=== PATIENT | female | born 1945 | race Caucasian/White ===

== ENCOUNTER → 2017-08-14 14:06 | Outpatient (CLI) | payer MEDICARE, SELFPAY | PROVIDERS: Visit Provider Family Medicine Geriatric Medicine | DX: R19.7 Diarrhea, unspecified (principal) | CPT/HCPCS: 36415; 82274; 83630; 87177; 87209; 87493; 87506 ==

== ENCOUNTER 2017-08-31 11:10 | Emergency (ER) | payer MEDICARE, SELFPAY ==
[2017-08-31 11:10] VITALS: BP 146/94; PULSE 69; RESP 20; TEMP 36.6; O2SAT 96; BMI 37.2
--- NOTE | 2017-08-31 11:36 | RAD_ITS ---
STUDY: X-RAY - LUMBAR SPINE REASON FOR EXAM: Female, 72 years old. Low back pain after falling on ice this morning. TECHNIQUE: 3 view(s) of the lumbar spine were obtained. COMPARISON: CT of the abdomen and pelvis dated August 13, 2017. FINDINGS: There is an exaggerated lumbar lordosis. There is no substantial scoliosis. There is a normal alignment of the vertebrae. There is mild decreased height of L1. This may represent an acute mild compression fracture. Estimated amount compression is approximately 20%. There is also mild decreased height of the L2 vertebral body. This is unchanged since the previous CT. There is multi-level degenerative disc disease with multi-level disc space narrowing. There is mild anterolisthesis at L4-5. There is atherosclerotic calcification of the abdominal aorta without a demonstrated aneurysm. RAD/Lumbar Spine 2 or 3 Views IMPRESSION: 1. Probably acute mild compression fracture of L1. 2. Old compression fracture of L2. 3. Multilevel degenerative disc disease and degenerative arthropathy of the lumbar spine. Electronically Signed: Lilian Mann MD at 13:31 EST , Service support ,
--- NOTE | 2017-08-31 13:49 | ED.VISSUMM ---
- ER Visit Summary Date of Service: 08/31/17 Chief Complaint: Back pain History of Present Illness: The patient is a 72 F who presents after mechanical fall. She slipped on ice and fell into a seated position. She was able to get up on her own and ambulate. She denies any numbness tingling radiation to the legs fevers abdominal pain history of back surgery urinary retention or fecal incontinence. Denies head injury loss of consciousness or injury to extremities. Physical Examination: Afebrile vitals are unremarkable Heart regular rate and rhythm Lungs are clear Abdomen soft Patient has left paraspinal lumbar tenderness she has no midline tenderness Normal strength and sensation of the lower extremities with normal pulses Test Results: Lumbar x-rays show mild acute L1 compression fracture and old L2 compression fracture as well as multilevel degenerative disc disease Emergency Department Course and Treatment: Patient's symptoms are controlled while sitting in bed. We discussed pain control and she does not want to take any medications except extra strength Tylenol. She was instructed on supportive care. She will follow-up with her primary care physician. She was instructed on specific signs and symptoms to monitor for, conditions under which to return to the emergency department. Patient discharged. Treatment Plan: [] Disposition: Discharge Impression: Lumbar compression fracture Lumbosacral strain This note was generated with [employer] dictation software. It may contain incorrect words, spelling, and punctuation that were not noted in review of the chart prior to signing ED Disposition - Plan for ED Patient: Chief Complaint: Back Referrals: Demetri Patterson Chi, MD [Primary Care Provider] -
--- NOTE | 2017-08-31 13:51 | ED.DEP ---
ED Disposition - Plan for ED Patient: Chief Complaint: Back Instructions: ED Fx Comp Vertebral, ED Sprain Strain Lumbar Referrals: Demetri Patterson Chi, MD [Primary Care Provider] -
[2017-08-31 13:58] VITALS: BP 130/72; PULSE 70; RESP 16; O2SAT 100
== END 2017-08-31 13:59 | disposition home or self-care (01) ==
LOC: ED 12:20
PROVIDERS: Emergency Provider Emergency Medicine; Family Provider Family Medicine; PCP Family Medicine Geriatric Medicine
DX: S32.019A Unspecified fracture of first lumbar vertebra, initial encounter for closed fracture (principal); S39.012A Strain of muscle, fascia and tendon of lower back, initial encounter; W00.0XXA Fall on same level due to ice and snow, initial encounter; Y93.9 Activity, unspecified; Y92.9 Unspecified place or not applicable; Y99.9 Unspecified external cause status; M51.36 Other intervertebral disc degeneration, lumbar region; I10 Essential (primary) hypertension; K21.9 Gastro-esophageal reflux disease without esophagitis; Z79.899 Other long term (current) drug therapy; Z90.710 Acquired absence of both cervix and uterus
CPT/HCPCS: 72100; 99282

== ENCOUNTER → 2017-09-11 10:39 | Outpatient (CLI) | payer MEDICARE, SELFPAY | PROVIDERS: Family Provider Family Medicine Geriatric Medicine; PCP Family Medicine Geriatric Medicine; Visit Provider Family Medicine Geriatric Medicine | DX: R69 Illness, unspecified (principal) | CPT/HCPCS: 87633 ==

== ENCOUNTER → 2017-11-12 14:00 | Outpatient (CLI) | payer MEDICARE, SELFPAY ==
[2017-11-12 17:00] LABS: Absolute Lymphocyte Count 1.83 X10^3/ul (0.83-4.51); Absolute Neutrophil Count 4.4 X10^3/uL (2.0-7.7); Basophil# 0.02 X10^3/uL; Basophil% 0.3 % (0-1); Eosinophil# 0.12 X10^3/uL; Eosinophils% 1.8 % (0-5); Hematocrit 41.2 % (37-47); Hemoglobin 13.4 g/dl (12.0-15.0); Lymphocyte # 1.83 X10^3/ul (4.0); Lymphocyte % 26.8 % (19-41); Mean Corp Hgb Conc 32.5 g/gl (32-36); Mean Corpuscular Hgb 29.6 pg (27.0-32.0); Mean Corpuscular Volume 91.2 fL (81-99); Mean Platelet Vol. 9.8 fl (6.2-12.0); Monocyte# 0.47 X10^3/uL; Monocyte% 6.9 % (0-10); Neutrophil # 4.38 X10^3/uL (2.7-7.7); Neutrophil % 63.9 % (47-70); Platelet Count 280 K/mm3 (150-450); RBC Distribution Width CV 14.6 % (11.6-14.6); RBC Distribution Width SD 47.7 fl (35.1-43.9); Red Blood Count 4.52 M/mm3 (4.2-5.4); White Blood Count 6.8 K/mm3 (4.4-11.0)
[2017-11-12 17:02] LABS: POSITIVE COUNT NO; POSITIVE DIFFERENTIAL NO; POSITIVE MORPHOLOGY NO
[2017-11-12 17:10] LABS: Vitamin D,25 Hydroxy 33.4 ng/mL (29.95-100.01)
[2017-11-12 17:21] LABS: ALB/GLOB Ratio 0.8 RATIO (0.9-2.4); AST(SGOT) 16 U/L (15-37); Alanine Aminotransfer ALT/SGPT 24 U/L (13-56); Albumin, Serum 3.4 g/dL (3.2-5.0); Alkaline Phosphatase 89 U/L (45-117); Anion Gap 9 (5-15); BUN 12 mg/dL (7-18); BUN/Creat Ratio 15.5 RATIO (10-20); Calcium,Total 8.8 mg/dL (8.5-10.1); Chloride 105 mmol/L (98-107); Creatinine, Serum 0.78 mg/dL (0.55-1.02); EST Glomerular Filtration Rate 78 mL/min (>60); Est Glom Filt Rate - Afr Amer 94 mL/min (>60); Globulin 4.1 g/dL (2.2-4.2); Glucose 113 mg/dL (74-106); Potassium 3.7 mmol/L (3.5-5.1); Protein, Total 7.5 g/dL (6.4-8.2); Sodium Level 139 mmol/L (136-145); Thyroid Stim Hormone (TSH) 1.06 uIU/mL (0.358-3.74)
== END ==
PROVIDERS: Family Provider Family Medicine Geriatric Medicine; PCP Family Medicine Geriatric Medicine; Visit Provider Family Medicine Geriatric Medicine
DX: R53.83 Other fatigue (principal); E55.9 Vitamin D deficiency, unspecified
CPT/HCPCS: 36415; 80053; 82306; 84443; 85025

== ENCOUNTER → 2018-02-10 14:30 | Outpatient (CLI) | payer MEDICARE, SELFPAY ==
--- NOTE | 2018-02-10 15:35 | RAD_ITS ---
STUDY: X-RAY CHEST REASON FOR EXAM: Female, 72 years old. SOB TECHNIQUE: Frontal and lateral views of the chest. COMPARISON: None. FINDINGS: Chronic interstitial lung changes without superimposed acute alveolar disease. There is no demonstrated pleural abnormality. Normal size heart. Normal mediastinum and isabel. Normal visualized pulmonary arteries. Normal visualized aortic arch and descending thoracic aorta. Thoracolumbar scoliosis. Normal visualized ribs, clavicles, and shoulders. There is no demonstrated abnormality of the visualized soft tissue structures of the upper abdomen. RAD/Chest PA and Lateral IMPRESSION: Chronic interstitial lung changes without superimposed acute alveolar disease. Electronically Signed: eMng Richardson MD at 2:49 EDT Tel , Service support ,
[2018-02-10 17:22] LABS: D-Dimer Quantitative (DVT/PE) 0.34 FEU/ug/m (0.27-0.49)
[2018-02-10 17:23] LABS: Absolute Neutrophil Count 4.9 X10^3/uL (2.0-7.7); Basophil# 0.02 X10^3/uL; Basophil% 0.3 % (0-1); Eosinophil# 0.08 X10^3/uL; Hematocrit 41.3 % (37-47); Hemoglobin 13.1 g/dl (12.0-15.0); Lymphocyte % 29.6 % (19-41); Mean Corp Hgb Conc 31.7 g/gl (32-36); Mean Corpuscular Hgb 29.4 pg (27.0-32.0); Mean Corpuscular Volume 92.8 fL (81-99); Mean Platelet Vol. 9.5 fl (6.2-12.0); Monocyte# 0.45 X10^3/uL; Monocyte% 5.8 % (0-10); Platelet Count 289 K/mm3 (150-450); RBC Distribution Width CV 13.4 % (11.6-14.6); RBC Distribution Width SD 45.6 fl (35.1-43.9); Red Blood Count 4.45 M/mm3 (4.2-5.4); White Blood Count 7.8 K/mm3 (4.4-11.0)
[2018-02-10 17:24] LABS: POSITIVE COUNT NO; POSITIVE DIFFERENTIAL NO; POSITIVE MORPHOLOGY NO
[2018-02-10 17:47] LABS: BNP,B-Type NATRIURETIC PEPTIDE 37.7 pg/mL (0-100)
[2018-02-10 17:48] LABS: ALB/GLOB Ratio 0.8 RATIO (0.9-2.4); AST(SGOT) 13 U/L (15-37); Alanine Aminotransfer ALT/SGPT 22 U/L (13-56); Albumin, Serum 3.4 g/dL (3.2-5.0); Alkaline Phosphatase 84 U/L (45-117); Anion Gap 10 (5-15); BUN 15 mg/dL (7-18); BUN/Creat Ratio 15.6 RATIO (10-20); Chloride 105 mmol/L (98-107); Creatinine, Serum 0.96 mg/dL (0.55-1.02); EST Glomerular Filtration Rate 61 mL/min (>60); Est Glom Filt Rate - Afr Amer 74 mL/min (>60); Globulin 4.2 g/dL (2.2-4.2); Glucose 147 mg/dL (74-106); Potassium 3.5 mmol/L (3.5-5.1); Protein, Total 7.6 g/dL (6.4-8.2); Sodium Level 139 mmol/L (136-145); Thyroid Stim Hormone (TSH) 0.75 uIU/mL (0.358-3.74)
[2018-02-11 08:31] LABS: Vitamin D,25 Hydroxy 26.1 ng/mL (29.95-100.01)
== END ==
PROVIDERS: Family Provider Family Medicine Geriatric Medicine; PCP Family Medicine Geriatric Medicine; Visit Provider Family Medicine Geriatric Medicine
DX: I10 Essential (primary) hypertension (principal); E55.9 Vitamin D deficiency, unspecified; R06.02 Shortness of breath
CPT/HCPCS: 36415; 71046; 80053; 82306; 83880; 84443; 85025; 85379

== ENCOUNTER → 2018-05-13 14:55 | Outpatient (CLI) | payer MEDICARE, SELFPAY ==
[2018-05-13 16:00] LABS: Hematocrit 39.4 % (37-47); Hemoglobin 12.6 g/dl (12.0-15.0); Mean Corpuscular Hgb 30.1 pg (27.0-32.0); Mean Platelet Vol. 9.7 fl (6.2-12.0); Platelet Count 261 K/mm3 (150-450); RBC Distribution Width CV 13.7 % (11.6-14.6); RBC Distribution Width SD 44.8 fl (35.1-43.9); Red Blood Count 4.19 M/mm3 (4.2-5.4); White Blood Count 9.1 K/mm3 (4.4-11.0)
[2018-05-13 16:03] LABS: Scan Indicated on CBC? Y/N NO
== END ==
PROVIDERS: Family Provider Family Medicine Geriatric Medicine; PCP Family Medicine Geriatric Medicine; Referring Provider Internal Medicine Pulmonary Disease; Visit Provider Internal Medicine Pulmonary Disease
DX: I10 Essential (primary) hypertension (principal); J45.909 Unspecified asthma, uncomplicated; Z86.2 Personal history of diseases of the blood and blood-forming organs and certain disorders involving the immune mechanism
CPT/HCPCS: 36415; 85027

== ENCOUNTER → 2018-08-17 14:33 | Outpatient (CLI) | payer MEDICARE, SELFPAY ==
[2018-01-12 17:19] VITALS: BMI 42.0
[2018-08-17 16:39] LABS: Absolute Lymphocyte Count 2.46 X10^3/ul (0.83-4.51); Absolute Neutrophil Count 5.1 X10^3/uL (2.0-7.7); Basophil# 0.03 X10^3/uL; Basophil% 0.4 % (0-1); Eosinophil# 0.09 X10^3/uL; Eosinophils% 1.1 % (0-5); Hematocrit 41.4 % (37-47); Hemoglobin 13.1 g/dl (12.0-15.0); Lymphocyte # 2.46 X10^3/ul (4.0); Lymphocyte % 29.7 % (19-41); Mean Corp Hgb Conc 31.6 g/gl (32-36); Mean Corpuscular Volume 91.6 fL (81-99); Mean Platelet Vol. 10.1 fl (6.2-12.0); Monocyte# 0.55 X10^3/uL; Monocyte% 6.6 % (0-10); Neutrophil # 5.11 X10^3/uL (2.7-7.7); Neutrophil % 61.7 % (47-70); Platelet Count 282 K/mm3 (150-450); RBC Distribution Width SD 46.7 fl (35.1-43.9); Red Blood Count 4.52 M/mm3 (4.2-5.4); White Blood Count 8.3 K/mm3 (4.4-11.0)
[2018-08-17 16:50] LABS: POSITIVE COUNT NO; POSITIVE DIFFERENTIAL NO; POSITIVE MORPHOLOGY NO
[2018-08-17 17:07] LABS: ALB/GLOB Ratio 0.9 RATIO (0.9-2.4); AST(SGOT) 28 U/L (15-37); Alanine Aminotransfer ALT/SGPT 32 U/L (13-56); Albumin, Serum 3.6 g/dL (3.2-5.0); Alkaline Phosphatase 81 U/L (45-117); Anion Gap 11 (5-15); BUN 12 mg/dL (7-18); BUN/Creat Ratio 13.9 RATIO (10-20); Calcium,Total 8.8 mg/dL (8.5-10.1); Chloride 106 mmol/L (98-107); Creatinine, Serum 0.87 mg/dL (0.55-1.02); EST Glomerular Filtration Rate 69 mL/min (>60); Est Glom Filt Rate - Afr Amer 83 mL/min (>60); Globulin 3.9 g/dL (2.2-4.2); Glucose 103 mg/dL (74-106); Potassium 4.3 mmol/L (3.5-5.1); Protein, Total 7.5 g/dL (6.4-8.2); Sodium Level 142 mmol/L (136-145); Thyroid Stim Hormone (TSH) 1.39 uIU/mL (0.358-3.74)
[2018-08-17 17:08] LABS: Vitamin D,25 Hydroxy 25.1 ng/mL (29.95-100.01)
== END ==
PROVIDERS: Family Provider Family Medicine Geriatric Medicine; PCP Family Medicine Geriatric Medicine; Visit Provider Family Medicine Geriatric Medicine
DX: I10 Essential (primary) hypertension (principal); E55.9 Vitamin D deficiency, unspecified
CPT/HCPCS: 36415; 80053; 82306; 84443; 85025

== ENCOUNTER → 2018-10-21 14:43 | Outpatient (CLI) | payer MEDICARE, SELFPAY ==
--- NOTE | 2018-10-21 14:45 | BI_ITS ---
MAMMOGRAPHY - BILATERAL SCREENING REASON FOR EXAM: Female, 73 years old. Routine annual screening examination. PERTINENT HISTORY: Non-contributory. TECHNIQUE: Digital bilateral breast pati (3D mammographic acquisition) in the CC and MLO projections. 2-D mediolateral oblique (MLO) and craniocaudad (CC) views of both breasts were obtained. CAD: Full Field Digital Mammography with Computer Added Detection was performed. COMPARISON: Comparison is made with prior operative examination dated May 12, 2017. FINDINGS: Breast Composition: The breasts are almost entirely fatty. There are no dominant masses or suspicious calcifications. Stable small bilateral benign-appearing axillary lymph nodes. No other significant abnormalities are identified. There has been no significant change since the prior study. BI/SCREENING MAMM (CAD), BILAT IMPRESSION: Stable bilateral screening mammogram. Yearly follow-up mammogram recommended. (A) ASSESSMENT CATEGORY: BIRADS Category 2: Benign. A letter regarding these results will be sent to the patient by the facility within 30 days. Approximately 10% of breast cancers are not detected by mammography. A normal mammogram should not delay biopsy of a clinically suspicious abnormality. [id number] Electronically Signed: Maikol Nunes, at 7:58 EDT , Service support ,
== END ==
PROVIDERS: Family Provider Family Medicine Geriatric Medicine; PCP Family Medicine Geriatric Medicine; Visit Provider Family Medicine Geriatric Medicine
DX: Z12.31 Encounter for screening mammogram for malignant neoplasm of breast (principal)
CPT/HCPCS: 77063; 77067

== ENCOUNTER → 2019-02-16 13:05 | Outpatient (CLI) | payer MEDICARE, SELFPAY ==
[2019-02-16 16:05] LABS: Absolute Neutrophil Count 4.8 X10^3/uL (2.0-7.7); Basophil# 0.04 X10^3/uL; Basophil% 0.5 % (0-1); Eosinophil# 0.12 X10^3/uL; Eosinophils% 1.6 % (0-5); Hematocrit 38.3 % (37-47); Hemoglobin 12.5 g/dL (12.0-15.0); Lymphocyte % 28.8 % (19-41); Mean Corp Hgb Conc 32.6 g/dL (32-36); Mean Corpuscular Hgb 29.8 pg (27.0-32.0); Mean Corpuscular Volume 91.2 fL (81-99); Monocyte# 0.44 X10^3/uL; Monocyte% 5.8 % (0-10); NRBC Flagged by Analyzer 0 % (0-5); Neutrophil % 62.9 % (47-70); Platelet Count 249 K/mm3 (150-450); RBC Distribution Width CV 13.3 % (11.6-14.6); RBC Distribution Width SD 44.6 fl (35.1-43.9); White Blood Count 7.6 K/mm3 (4.4-11.0)
[2019-02-16 16:26] LABS: Vitamin D,25 Hydroxy 23.8 ng/mL (29.95-100.01)
[2019-02-16 16:33] LABS: ALB/GLOB Ratio 0.8 RATIO (0.9-2.4); AST(SGOT) 18 U/L (15-37); Alanine Aminotransfer ALT/SGPT 28 U/L (13-56); Albumin, Serum 3.4 g/dL (3.2-5.0); Alkaline Phosphatase 91 U/L (45-117); Anion Gap 10 (5-15); BUN 14 mg/dL (7-18); BUN/Creat Ratio 15.8 RATIO (10-20); Calcium,Total 8.7 mg/dL (8.5-10.1); Chloride 107 mmol/L (98-107); Creatinine, Serum 0.89 mg/dL (0.55-1.02); EST Glomerular Filtration Rate 66 mL/min (>60); Est Glom Filt Rate - Afr Amer 80 mL/min (>60); Globulin 4.3 g/dL (2.2-4.2); Glucose 134 mg/dL (74-106); Protein, Total 7.7 g/dL (6.4-8.2); Sodium Level 141 mmol/L (136-145); Thyroid Stim Hormone (TSH) 3.54 uIU/mL (0.358-3.74)
== END ==
PROVIDERS: Family Provider Family Medicine Geriatric Medicine; PCP Family Medicine Geriatric Medicine; Visit Provider Family Medicine Geriatric Medicine
DX: I10 Essential (primary) hypertension (principal); E55.9 Vitamin D deficiency, unspecified
CPT/HCPCS: 36415; 80053; 82306; 84443; 85025

== ENCOUNTER → 2019-08-26 13:57 | Outpatient (CLI) | payer MEDICARE, SELFPAY ==
[2018-01-12 17:19] VITALS: BMI 42.0
[2019-08-26 17:21] LABS: Absolute Lymphocyte Count 2.16 X10^3/uL (0.83-4.51); Absolute Neutrophil Count 4.4 X10^3/uL (2.0-7.7); Basophil# 0.04 X10^3/uL; Basophil% 0.6 % (0-1); Eosinophil# 0.07 X10^3/uL; Hematocrit 40.1 % (37-47); Hemoglobin 12.7 g/dL (12.0-15.0); Lymphocyte # 2.16 X10^3/ul (4.0); Mean Corp Hgb Conc 31.7 g/dL (32-36); Mean Corpuscular Hgb 28.3 pg (27.0-32.0); Mean Corpuscular Volume 89.5 fL (81-99); Monocyte# 0.52 X10^3/uL; Monocyte% 7.2 % (0-10); NRBC Flagged by Analyzer 0 % (0-5); Neutrophil % 60.9 % (47-70); Platelet Count 294 K/mm3 (150-450); RBC Distribution Width CV 13.2 % (11.6-14.6); RBC Distribution Width SD 43.5 fl (35.1-43.9); Red Blood Count 4.48 M/mm3 (4.2-5.4); White Blood Count 7.2 K/mm3 (4.4-11.0)
[2019-08-26 17:43] LABS: ALB/GLOB Ratio 0.8 RATIO (0.9-2.4); AST(SGOT) 25 U/L (15-37); Alanine Aminotransfer ALT/SGPT 34 U/L (13-56); Albumin, Serum 3.6 g/dL (3.2-5.0); Alkaline Phosphatase 88 U/L (45-117); Anion Gap 6 (5-15); BUN 10 mg/dL (7-18); BUN/Creat Ratio 11.5 RATIO (10-20); Calcium,Total 9.3 mg/dL (8.5-10.1); Chloride 106 mmol/L (98-107); Creatinine, Serum 0.87 mg/dL (0.55-1.02); EST Glomerular Filtration Rate 68 mL/min (>60); Est Glom Filt Rate - Afr Amer 82 mL/min (>60); Globulin 4.5 g/dL (2.2-4.2); Glucose 116 mg/dL (74-106); Potassium 3.6 mmol/L (3.5-5.1); Protein, Total 8.1 g/dL (6.4-8.2); Sodium Level 138 mmol/L (136-145); Thyroid Stim Hormone (TSH) 2.79 uIU/mL (0.358-3.74)
[2019-08-26 17:45] LABS: Vitamin D,25 Hydroxy 24.2 ng/mL (29.95-100.01)
== END ==
PROVIDERS: PCP Family Medicine Geriatric Medicine; Visit Provider Family Medicine Geriatric Medicine
DX: I10 Essential (primary) hypertension (principal); E55.9 Vitamin D deficiency, unspecified
CPT/HCPCS: 36415; 80053; 82306; 84443; 85025

== ENCOUNTER → 2020-05-23 15:20 | Outpatient (CLI) | payer MEDICARE, SELFPAY ==
[2018-01-12 17:19] VITALS: BMI 42.0
--- NOTE | 2020-05-23 16:05 | RAD_ITS ---
STUDY: X-RAY - ABDOMEN/PELVIS REASON FOR EXAM: Female, 75 years old. diarrhea, pain on left side, off and on x 10 years TECHNIQUE: Single AP view of the abdomen / pelvis. COMPARISON: None. FINDINGS: Normal visualized lung bases. There is fecal retention, otherwise unremarkable bowel gas pattern. There is no demonstrated free abdominal air. The visualized liver, spleen and kidneys are grossly normal in size and morphology. Normal soft tissue structures. Normal visualized osseous structures. RAD/Abd Inc Decub and/or Erect IMPRESSION: Fecal retention, otherwise negative. Electronically Signed: Joshua Reid MD at 18:35 EST , Service support ,
[2020-05-23 17:19] LABS: Absolute Lymphocyte Count 2.92 X10^3/uL (0.83-4.51); Absolute Neutrophil Count 3.6 X10^3/uL (2.0-7.7); Basophil# 0.05 X10^3/uL; Basophil% 0.7 % (0-1); Eosinophil# 0.15 X10^3/uL; Hematocrit 39.1 % (37-47); Hemoglobin 12.6 g/dL (12.0-15.0); Lymphocyte # 2.92 X10^3/ul (4.0); Lymphocyte % 39.8 % (19-41); Mean Corp Hgb Conc 32.2 g/dL (32-36); Mean Corpuscular Hgb 30.5 pg (27.0-32.0); Mean Corpuscular Volume 94.7 fL (81-99); Mean Platelet Vol. 9.5 fl (6.2-12.0); Monocyte# 0.62 X10^3/uL; Monocyte% 8.5 % (0-10); NRBC Flagged by Analyzer 0 % (0-5); Neutrophil # 3.56 X10^3/uL (2.7-7.7); Neutrophil % 48.6 % (47-70); Platelet Count 234 K/mm3 (150-450); RBC Distribution Width CV 12.8 % (11.6-14.6); RBC Distribution Width SD 44.4 fl (35.1-43.9); Red Blood Count 4.13 M/mm3 (4.2-5.4); White Blood Count 7.3 K/mm3 (4.4-11.0)
[2020-05-23 17:24] LABS: ALB/GLOB Ratio 0.9 RATIO (0.9-2.4); AST(SGOT) 20 U/L (15-37); Alanine Aminotransfer ALT/SGPT 35 U/L (13-56); Albumin, Serum 3.5 g/dL (3.2-5.0); Alkaline Phosphatase 75 U/L (45-117); Anion Gap 8 (5-15); BUN 16 mg/dL (7-18); BUN/Creat Ratio 16.2 RATIO (10-20); Calcium,Total 8.7 mg/dL (8.5-10.1); Chloride 104 mmol/L (98-107); Creatinine, Serum 0.99 mg/dL (0.55-1.02); EST Glomerular Filtration Rate 59 mL/min (>60); Est Glom Filt Rate - Afr Amer 71 mL/min (>60); Glucose 117 mg/dL (74-106); Potassium 4.4 mmol/L (3.5-5.1); Protein, Total 7.5 g/dL (6.4-8.2); Sodium Level 139 mmol/L (136-145)
== END ==
LOC: POLAB3 15:20 → RAD 16:03
PROVIDERS: PCP Family Medicine Geriatric Medicine; Referring Provider Family Medicine Geriatric Medicine; Visit Provider Family Medicine Geriatric Medicine
DX: E55.9 Vitamin D deficiency, unspecified (principal); I10 Essential (primary) hypertension; R19.7 Diarrhea, unspecified
CPT/HCPCS: 36415; 74019; 80053; 82306; 84443; 85025

== ENCOUNTER → 2020-06-07 17:45 | Outpatient (CLI) | payer MEDICARE, SELFPAY | PROVIDERS: PCP Family Medicine Geriatric Medicine; Referring Provider Family Medicine Geriatric Medicine; Visit Provider Family Medicine Geriatric Medicine | DX: R68.83 Chills (without fever) (principal) | CPT/HCPCS: 87635; C9803; U0003 ==

== ENCOUNTER → 2020-11-21 14:20 | Outpatient (CLI) | payer MEDICARE, SELFPAY ==
[2018-01-12 17:19] VITALS: BMI 42.0
[2020-11-21 14:44] LABS: Absolute Lymphocyte Count 2.99 X10^3/uL (0.83-4.51); Absolute Neutrophil Count 4.7 X10^3/uL (2.0-7.7); Basophil# 0.04 X10^3/uL; Basophil% 0.5 % (0-1); Eosinophil# 0.09 X10^3/uL; Eosinophils% 1.1 % (0-5); Hemoglobin 12.6 g/dL (12.0-15.0); Lymphocyte # 2.99 X10^3/ul (0.83-4.51); Lymphocyte % 35.6 % (19-41); Mean Corp Hgb Conc 31.5 g/dL (32-36); Mean Corpuscular Hgb 28.7 pg (27.0-32.0); Mean Corpuscular Volume 91.1 fL (81-99); Mean Platelet Vol. 9.4 fl (6.2-12.0); Monocyte# 0.57 X10^3/uL; Monocyte% 6.8 % (0-10); NRBC Flagged by Analyzer 0 % (0-5); Neutrophil # 4.67 X10^3/uL (2.7-7.7); Neutrophil % 55.4 % (47-70); Platelet Count 312 K/mm3 (150-450); RBC Distribution Width CV 13.4 % (11.6-14.6); RBC Distribution Width SD 45.1 fl (35.1-43.9); Red Blood Count 4.39 M/mm3 (4.2-5.4); White Blood Count 8.4 K/mm3 (4.4-11.0)
[2020-11-21 15:08] LABS: Vitamin D,25 Hydroxy 25.9 ng/mL
[2020-11-21 15:16] LABS: AST(SGOT) 20 U/L (15-37); Alanine Aminotransfer ALT/SGPT 29 U/L (13-56); Albumin, Serum 3.7 g/dL (3.2-5.0); Alkaline Phosphatase 91 U/L (45-117); Anion Gap 7 (5-15); BUN 17 mg/dL (7-18); BUN/Creat Ratio 18.4 RATIO (10-20); Chloride 106 mmol/L (98-107); Creatinine, Serum 0.92 mg/dL (0.55-1.02); EST Glomerular Filtration Rate 63 mL/min (>60); Est Glom Filt Rate - Afr Amer 77 mL/min (>60); Globulin 3.7 g/dL (2.2-4.2); Glucose 154 mg/dL (74-106); Potassium 3.8 mmol/L (3.5-5.1); Protein, Total 7.4 g/dL (6.4-8.2); Sodium Level 138 mmol/L (136-145)
== END ==
PROVIDERS: PCP Family Medicine Geriatric Medicine; Visit Provider Family Medicine Geriatric Medicine
DX: I10 Essential (primary) hypertension (principal); E55.9 Vitamin D deficiency, unspecified
CPT/HCPCS: 36415; 80053; 82306; 84443; 85025

== ENCOUNTER → 2021-02-20 13:12 | Outpatient (CLI) | payer MEDICARE, SELFPAY ==
[2021-02-05 13:52] VITALS: BMI 42.0
[2021-02-20 15:17] LABS: Cholesterol 253 mg/dL (200); High Density Lipoprotein 43 mg/dL; Triglycerides 285 mg/dL; Very Low Density Lipoprotein 57 mg/dL (5-40)
== END ==
PROVIDERS: PCP Internal Medicine; Referring Provider Internal Medicine; Visit Provider Internal Medicine
DX: I10 Essential (primary) hypertension (principal); R73.9 Hyperglycemia, unspecified
CPT/HCPCS: 36415; 80061; 83036

== ENCOUNTER → 2021-06-19 | Outpatient (CLI) | payer MEDICARE, SELFPAY ==
--- NOTE | 2021-06-19 | LES_PTH ---
PATIENT: JAYCE MARTINEZ LOC: [facility] U#:[id number] AGE/SX: 76/F ROOM: RE06/19/[address]: Dr. Maury Rothman MD : 1945 BED: DIS: 06/19/2021 SPEC #: [id number] RECD: 06/19/21 15:07 STATUS: JORDAN REAnkur #: [id number] STEWART: 06/19/21 00:[address]: Maury Rothman DEPT: SURGICAL PATHOLOGY RECD BY: Dora Frias ENTERED: 06/20/21 09:29 SP TYPE: Lesion OTHR DR: Dr. Shayna Keating MD Tissues: Skin of eyelid, NOS Procedures: Surgery Specimen Level IV HEADER OPERATION: Left upper lid PRE-OP DIAGNOSIS: Left upper lid lesion TISSUE SUBMITTED: Left upper lid lesion MICROSCOPIC DIAGNOSIS Left upper lid lesion, biopsy: Consistent with benign verrucous keratosis with focal features of squamous papilloma. See comment. SJ:ramesh 06/21/2021 COMMENT Clinical correlation and appropriate follow up are necessary. MICROSCOPIC DESCRIPTION Slides are reviewed. GROSS DESCRIPTION Received in fixative is one container labeled with the patient's name and designated left upper lid. The specimen consists of a piece of keane-brown skin measuring 0.2 x 0.1 x 0.1 cm. The specimen is totally submitted in one cassette. / STEPHANIE:ramesh 06/20/21 TC:5 CPT: 63416
== END | disposition home or self-care (01) ==
PROVIDERS: PCP Internal Medicine; Visit Provider Ophthalmology
DX: H20.9 Unspecified iridocyclitis (principal)
CPT/HCPCS: 88305

== ENCOUNTER → 2021-11-26 | Outpatient (CLI) | payer MEDICARE, SELFPAY ==
[2021-11-26 12:30] LABS: Absolute Lymphocyte Count 1.98 X10^3/uL (0.83-4.51); Absolute Neutrophil Count 3.3 X10^3/uL (2.0-7.7); Basophil# 0.05 X10^3/uL; Basophil% 0.8 % (0-1); Eosinophil# 0.26 X10^3/uL; Eosinophils% 4.3 % (0-5); Hematocrit 40.4 % (37-47); Hemoglobin 12.7 g/dL (12.0-15.0); Lymphocyte # 1.98 X10^3/ul (0.83-4.51); Lymphocyte % 32.8 % (19-41); Mean Corp Hgb Conc 31.4 g/dL (32-36); Mean Corpuscular Hgb 27.7 pg (27.0-32.0); Monocyte# 0.45 X10^3/uL; Monocyte% 7.5 % (0-10); NRBC Flagged by Analyzer 0 % (0-5); Neutrophil # 3.28 X10^3/uL (2.7-7.7); Neutrophil % 54.4 % (47-70); Platelet Count 279 K/mm3 (150-450); RBC Distribution Width CV 13.8 % (11.6-14.6); RBC Distribution Width SD 44.2 fl (35.1-43.9); Red Blood Count 4.59 M/mm3 (4.2-5.4)
[2021-11-26 12:46] LABS: Vitamin D,25 Hydroxy 28.6 ng/mL
[2021-11-26 14:19] LABS: ALB/GLOB Ratio 0.8 RATIO (0.9-2.4); AST(SGOT) 16 U/L (15-37); Alanine Aminotransfer ALT/SGPT 26 U/L (13-56); Albumin, Serum 3.4 g/dL (3.2-5.0); Alkaline Phosphatase 88 U/L (45-117); Anion Gap 8 (5-15); BUN 13 mg/dL (7-18); BUN/Creat Ratio 17.6 RATIO (10-20); Chloride 107 mmol/L (98-107); Cholesterol 250 mg/dL (200); Creatinine, Serum 0.74 mg/dL (0.55-1.02); EST Glomerular Filtration Rate 82 mL/min (>60); Est Glom Filt Rate - Afr Amer 99 mL/min (>60); Free T3 2.5 pg/mL (2.18-3.98); Globulin 4.3 g/dL (2.2-4.2); Glucose 125 mg/dL (74-106); High Density Lipoprotein 45 mg/dL; Potassium 3.8 mmol/L (3.5-5.1); Protein, Total 7.7 g/dL (6.4-8.2); Sodium Level 139 mmol/L (136-145); T4 Free Direct 1.15 ng/dL (0.76-1.46); Triglycerides 188 mg/dL; Very Low Density Lipoprotein 38 mg/dL (5-40)
== END | disposition home or self-care (01) ==
LOC: BIMLAB 08:22
PROVIDERS: PCP Internal Medicine; Visit Provider Internal Medicine
DX: I10 Essential (primary) hypertension (principal); E03.9 Hypothyroidism, unspecified; E55.9 Vitamin D deficiency, unspecified
CPT/HCPCS: 36415; 80053; 80061; 82306; 84439; 84443; 84481; 85025

== ENCOUNTER → 2021-12-18 | Outpatient (CLI) | payer MEDICARE, SELFPAY ==
--- NOTE | 2021-12-18 14:18 | CT_ITS ---
STUDY: CT Lower Extremity W/O Contrast Injection 12/18/2021 4:55 PM REASON FOR EXAM: Female, 76 years old. LFT KNEE OSTEOARTHRITIS Individualized dose optimization techniques were used for this CT. TECHNIQUE: LFT KNEE OSTEOARTHRITIS [facility] protocol Radiation: CTDIvol = [18.76] mGy, DLP = [1363.49] mGy-cm COMPARISON: No priors for comparison. FINDINGS: A bernadette was placed along the lateral aspect of the patient''s lower extremity. CT scans were obtained over the hip, knee, and ankle, separately. There are multiple colonic diverticula consistent with diverticulosis. There is an umbilical hernia containing fat. There is absence of the uterus consistent with a prior hysterectomy. Small suprapatellar effusion. Degenerative findings of the knee. There is a calcaneal spur. There is an enthesophyte involving the posterior superior calcaneus at the site of insertion of the Achilles tendon. CT/Extremity Lower without Contra IMPRESSION: The images will be utilized by the surgical prosthesis manager performance improvement for measurement and planning purposes.. Small suprapatellar effusion. Degenerative findings of the knee. Electronically Signed: Sanjiv Cuba MD at 17:00 EDT ,
== END | disposition home or self-care (01) ==
LOC: CT 13:54
PROVIDERS: PCP Internal Medicine; Visit Provider Physician Assistant
DX: M17.12 Unilateral primary osteoarthritis, left knee (principal)
CPT/HCPCS: 73700

== ENCOUNTER 2021-12-31 14:38 | Observation (INO) | payer MEDICARE, SELFPAY ==
--- NOTE | 2021-12-21 12:00 | EKG12_ITS ---
Test Reason : PREOP Blood Pressure : / mmHG Vent. Rate : 075 BPM Atrial Rate : 075 BPM P-R Int : 174 ms QRS Dur : 088 ms QT Int : 394 ms P-R-T Axes : 014 -14 018 degrees QTc Int : 439 ms Normal sinus rhythm Normal ECG Confirmed by DEQUAN MICHAEL, BRIE ([id number]), book or script editor QUEENIE RAMIREZ ([id number]) on 12/24/2021 12:40:18 PM Referred By: Boby Pond Confirmed By:BRIE BAIRES MD
[2021-12-21 13:52] LABS: International Normalized Ratio 1.1; Prothrombin Time (Protime)PT. 13.5 SECONDS (11.7-14.9)
[2021-12-21 13:53] LABS: Partial Thromboplast Time 29.9 Seconds (24.1-36.2)
[2021-12-21 13:58] LABS: Magnesium 2.1 mg/dL (1.6-2.6)
[2021-12-31] VITALS (18 sets, daily range): BP systolic 93–126; BP diastolic 44–88; PULSE 63–77; RESP 16–20; TEMP 36.2–36.9; O2SAT 2–98; BMI 41.2
[2021-12-31] MEDS: Gabapentin 600 MG Tablet PO (09:35)
[2021-12-31] MEDS: Acetaminophen 500 MG Tablet 1000 MG PO ×2 (09:35→17:52)
[2021-12-31] MEDS: Lactated Ringers 1,000 ML 15 ML IV (09:38)
[2021-12-31 10:41] LABS: Bedside Glucose 82 mg/dL (74-106)
[2021-12-31] MEDS: Cefazolin 2 GM in 0.9% Normal Saline 100 ML IV (10:58)
[2021-12-31] MEDS: TXA 1000mg in NS100 100ml (IVPB at Incision) 660 MG IV (11:30)
--- NOTE | 2021-12-31 11:30 | KNEE_PTH ---
PATIENT: JAYCE MARTINEZ LOC: MS3 U#:[id number] AGE/SX: 76/F ROOM: TX305 RE12/31/[address]: Dr. Boby Pond DO : 1945 BED: 1 DIS: 01/03/2022 SPEC #: [id number] RECD: 12/31/21 15:50 STATUS: JORDAN REAnkur #: [id number] STEWART: 12/31/21 11:[address]: Boby Pond DEPT: SURGICAL PATHOLOGY RECD BY: Sarina Hou ENTERED: 01/01/22 12:08 SP TYPE: TOTAL KNEE OTHR DR: Dr. Shayna Keating MD Tissues: Knee, NOS Procedures: Decalcification bone/plaque Surgery Specimen Level IV HEADER OPERATION: ERAS, total knee replacement robotic arm assist PRE-OP DIAGNOSIS: Osteoarthritis left knee TISSUE SUBMITTED: Left tibial and femoral bone MICROSCOPIC DIAGNOSIS Left tibial and femoral bone, total knee replacement/resection: Pieces of bone with degenerative osteoarthritic changes. Fibroadipose tissue and reactive synovial tissue. STEPHANIE:ramesh 01/04/2022 MICROSCOPIC DESCRIPTION Slides are reviewed. GROSS DESCRIPTION Received is one container designated left tibial and femoral bone. The specimen consists of multiple fragments of keane-yellow bone measuring in aggregate 11 x 9 x 3.5 cm. A small piece of soft tissue is noted attached to the bone measuring 3 x 2.5 x 0.5 cm. A number of bony fragments contain articular surfaces consistent with tibial plateau and femoral condyle and displaying prominent osteophyte formation, eburnation and bone erosion. Granulating Blender sections are submitted in two cassettes as follows: 1 - soft tissue, 2 - bone after decalcification. / STEPHANIE:ramesh 01/01/2022 TC:[address] [facility]: [id number]
[2021-12-31] MEDS: Lactated Ringers 1,000 ML 999 ML IV (12:31)
[2021-12-31] MEDS: TXA 1000mg in NS100 100ml (IVPB at Closure) 660 MG IV (12:33)
--- NOTE | 2021-12-31 12:50 | PCM.OPRPT ---
Report of Operation Date of Procedure: 12/31/21 Pre-Operative Diagnosis: OA left knee Post-Operative Diagnosis: same Surgery/Procedure Performed:: Left TKR Description of Surgical Findings:: Report of Operation Date of Procedure: 12/31/2021 Preoperative Diagnosis: [ left ] knee primary osteoarthritis Postoperative Diagnosis: [ left ] knee primary osteoarthritis Operation: Robotic Assisted Knee Total Arthroplasty, [left ] knee Surgeon: Dr Boby Pond DO Remote Sensing Specialist: Gil Leonard PA-C Anesthesia: general Anesthesiologist: Manpreet Montes De Oca M.D. Findings: Stable knee with good patella tracking Specimen(s): Bony cuts Complications: No intraoperative complications Estimated Blood Loss: 30 cc IV Fluids: 1000 cc crystalloid Implants Used: 1. [employer] Triathlon press-fit CR size 2 femur 2. [place] Triathlon size 2 tibia 3. 29 mm patella 4. 9 mm CS polyethylene Brief History Operative Indications: [ (76 y/o female) ] with history of [ left ] knee osteoarthrosis with radiographic findings with loss of joint space, osteophyte formation and subchondral sclerosis. Failed conservative measures as mentioned in the H&P. Discussion of total knee arthroplasty as well as risk and benefits were discussed with the patient including but not limited to blood loss, DVTs, PEs, neurovascular damage, general risk of anesthesia including loss of life, and stiffness or instability were also discussed with the patient. Patient demonstrated understanding and was able to sign informed consent. Procedure: On the date of procedure, patient's [left ] lower extremity was marked in the preoperative area. The patient was then taken back to the operating room where that patient was placed on the table in the supine position. All bony prominences were identified and well-padded. Anesthesia assumed control of the C-spine and airway throughout the remainder of the procedure. A tourniquet was placed on the [ left ] upper thigh and the leg was prepped in a sterile fashion. The surgeon then scrubbed at this time. Upon reentering the room, the [ left ] lower extremity was draped in a standard orthopedic fashion. A timeout was then called and everyone agreed upon the side, the site, the procedure to be performed, patient's identity and antibiotics given. Esmarch bandage was used to exsanguinate the extremity and the tourniquet was placed up to 250 mmHg with the knee in flexion. A midline skin incision was made and a sharp dissection was taken down through skin, subcutaneous tissue and fat. The standard medial parapatellar incision was made and the patella was subluxed laterally. An appropriate deep MCL release was done and the fat pad was resected. Our attention was then directed to the patella. The patella was everted and a flat resection was made. The knee was then flexed up and 2 femoral pins were placed inside the incision and 2 tibial pins were placed outside the incision in the medial tibia bicortically. Once this was completed, the 2 checkpoints in the femur and tibia were placed. Knee was then flexed up and the bony landmarks were registered. Once the was completed, the knee taken through range of motion and manually stressed allowing us to plan for an appropriate tibial cut. The robotic arm was brought into the field sterilely and checkpoint and saw were registered. Based on the patient's deformity, the tibial cut was made in [2 degrees varus ]. At this time, the tensioner was then placed in the joint and ligament tension was checked at 90 degrees and full extension. Based on the patient's ligamentous tension, appropriate adjustments were made to the operative plan and ligament releases were done. Once we were happy with our operative plan with balanced flexion and extension gaps, our attention was directed to the femur. The robot was brought into the field sterilely and registered. Posterior condylar cuts, anterior chamfer cuts and anterior cuts were appropriately made for a [size 2 ] femur. When these were completed, the saws were switched out in the distal femoral and posterior chamfer cuts were made. Protecting the soft tissue throughout this time. A [ size 2 ] base plate was selected. The knee was flexed to 90 degrees and soft tissues and posterior osteophytes were removed from the joint. 40 cc of the periarticular injection was injected into the posterior medial corner of the joint. The appropriate trials were then placed on the femur and tibia. A trial polyethylene was trialed to ensure proper balancing and stability of the knee. The appropriate tibial internal rotation was then marked with a bovie. Our attention was then directed to the patella. The lug holes were drilled and the patella trial was placed. Patellar tracking was checked and deemed appropriate. Once we were happy, lug holes were drilled for the femur and trial components were removed. The tibia was subluxed and pinned into place and the keel was punched and drilled appropriately. Final components were verified and opened. The wound was copiously irrigated with normal saline. The components were impacted into place with the tibia, femur and finally the patella. The trial poly component was placed and the knee was placed in full extension. The tracking, alignment and balance were verified and a [ ] polyethylene component was placed. Once the final components were placed an Irrisept lavage was performed and the wound was copiously irrigated with normal saline solution and the periarticular injection was given. the wound was closed in a layer-desai fashion using #1 vicryl interrupted sutures for the arthrotomy, 2-0 interrupted vicryl suture for the subcuticular layer and isaias for final skin closure. A sterile compressive dressing was then placed. The patient was then awakened from anesthesia, transferred to the [place] and transferred to the PACU for recovery. My physician microbiology lab assistant was a vital part of this case. He was important in appropriate retraction during the case, and protection of soft tissues during bony cuts. His intimate knowledge of the case and my steps aided in safe and expedient completion of the procedure as well as appropriate position of the leg during the case. He was also vital in assisting with closure under my direct supervision. Due to the complexity of this case, robotic arm was used to assist in the surgery to improve accuracy and clinical outcomes. Post-op Plan: DVT ppx; ASA 81 mg BID, thigh high compression stockings Follow up: in office in 2 weeks for wound check PT: to start POD #0 at hospital, outpatient PT should be arranged. Preoperative antibiotic: Ancef 3 grams IV Boby Pond DO Surgeon: Boby Pond clinical lab assistant: Gil Leonard Type of Anesthesia: General Anesthesiologist: Manpreet Montes De Oca Estimated Blood Loss (mL): 30 cc Fluids Replaced: 1000 cc crystalloid Admit VTE Documentation VTE Present on Admission: No VTE Mechan Device Prophylaxis: SCD's and Thigh High MADISON Hose VTE Pharm Prophylaxis ordered?: Yes
--- NOTE | 2021-12-31 13:45 | RAD_ITS ---
EXAM: XR LEFT KNEE, 1 OR 2 VIEWS CLINICAL INDICATION: post op -- AP and Lateral xray of operative knee in PACU TECHNIQUE: Frontal and/or lateral views of the left knee. This report was created using [employer] report generation technology. COMPARISON: None. FINDINGS: BONES/JOINTS: Knee prosthesis in place in satisfactory position. SOFT TISSUES: Soft tissue gas related to recent surgery. Anterior skin isaias in place. No radiopaque foreign body. RAD/Knee 1 or 2 Views IMPRESSION: Satisfactory postoperative changes. Electronically Signed: Benitez Anne MD at 16:49 EDT ,
[2021-12-31] MEDS: Lactated Ringers 1,000 ML 125 ML IV (14:01)
[2021-12-31] MEDS: Lisinopril 40 MG Tablet PO (17:53)
[2021-12-31] MEDS: Citalopram 20 MG Tablet PO (17:53)
[2021-12-31] MEDS: amLODIPine 2.5 MG Tablet PO (17:53)
[2021-12-31] MEDS: Cefazolin 1 GM/50 ML BAG IV (18:41)
[2021-12-31] MEDS: Aspirin 81 MG TAB.CHEW PO (22:20)
[2021-12-31] MEDS: Senna/Docusate Sodium 1 Tablet 2 TABLET PO (22:20)
[2021-12-31] MEDS: LORazepam 0.5 MG Tablet PO (22:20)
[2021-12-31] MEDS: Pravastatin 40 MG Tablet PO (22:20)
[2022-01-01] VITALS (12 sets, daily range): BP systolic 108–136; BP diastolic 44–76; PULSE 64–73; RESP 16–18; TEMP 36.4–37.1; O2SAT 75–97
[2022-01-01] MEDS: Cefazolin 1 GM/50 ML BAG IV (04:55)
[2022-01-01 05:56] LABS: Hematocrit 31.9 % (37-47); Mean Corp Hgb Conc 31.3 g/dL (32-36); Mean Corpuscular Hgb 27.9 pg (27.0-32.0); Mean Corpuscular Volume 89.1 fL (81-99); Mean Platelet Vol. 9.6 fl (6.2-12.0); Platelet Count 189 K/mm3 (150-450); RBC Distribution Width CV 14.2 % (11.6-14.6); RBC Distribution Width SD 46.5 fl (35.1-43.9); Red Blood Count 3.58 M/mm3 (4.2-5.4); White Blood Count 9.2 K/mm3 (4.4-11.0)
[2022-01-01] MEDS: Levothyroxine 100 MCG Tablet PO (06:21)
[2022-01-01] MEDS: Acetaminophen 500 MG Tablet 1000 MG PO ×3 (06:21→20:50)
[2022-01-01] MEDS: oxyCODONE 5 MG Tablet PO ×2 (06:21→13:49)
[2022-01-01 06:28] LABS: Anion Gap 6 (5-15); BUN 13 mg/dL (7-18); BUN/Creat Ratio 16.6 RATIO (10-20); Calcium,Total 8.5 mg/dL (8.5-10.1); Chloride 103 mmol/L (98-107); Creatinine, Serum 0.78 mg/dL (0.55-1.02); EST Glomerular Filtration Rate 76 mL/min (>60); Est Glom Filt Rate - Afr Amer 92 mL/min (>60); Estimated Creatinine Clearance 39.04 ml/min; Glucose 118 mg/dL (74-106); Potassium 4.2 mmol/L (3.5-5.1); Sodium Level 136 mmol/L (136-145)
[2022-01-01] MEDS: 0.9% Saline Lock 10 ML Syringe IV (06:41)
[2022-01-01] MEDS: Ondansetron 4 MG/2 ML Vial IV (06:41)
--- NOTE | 2022-01-01 07:56 | PCM.PN.ORT ---
Subjective Subjective Patient lying in bed therapy working with her. Patient states she has been doing very well. States her pain has been well managed. Patient denies chest pain, shortness of breath, calf pain, nausea vomiting. Patient would like to go to TCU, or preferably to [facility] for for rehab. Objective Data Objective Data Vital Signs: Vital Signs Temp Pulse Resp BP Pulse Ox 98.6 F 73 18 136/71 H 93 01/01/22 04:52 01/01/22 04:52 01/01/22 04:52 01/01/22 04:52 01/01/22 07:24 Oxygen Flow Rate (L/min) 3 Oxygen Delivery Method Nasal Cannula Weight: 102.3 kg Body Mass Index (BMI) 41.2 Intake & Output: Intake and Output for Last 24 Hours 12/30/21 12/31/21 01/01/22 23:59 23:59 23:59 Intake Total 4152 / 4152 250 / 250 Output Total 600 / 600 100 / 100 Balance 3552 / 3552 150 / 150 Lab / Micro Data Result Diagrams: 01/01/22 04:47 01/01/22 04:47 Labs: Laboratory Results - last 24 hr 12/31/21 09:28: POC Glucose 82 01/01/22 04:47: WBC 9.2, RBC 3.58 L, Hgb 10.0 L, Hct 31.9 L, MCV 89.1, MCH 27.9, MCHC 31.3 L, RDW Std Deviation 46.5 H, RDW Coeff of Gladis 14.2, Plt Count 189, MPV 9.6 01/01/22 04:47: Sodium 136, Potassium 4.2, Chloride 103, Carbon Dioxide 27.0, Anion Gap 6, BUN 13, Creatinine 0.78, Estim Creat Clear Calc 39.04, Est GFR (MDRD) Af Amer 92, Est GFR (MDRD) Non-Af 76, BUN/Creatinine Ratio 16.6, Glucose 118 H, Calcium 8.5 Micro: Microbiology 12/21/21 12:18 Interface Orders Nasal Screen MRSA/MSSA - Final Radiography Diagnostic Testing: Radiology Impression Knee X-Ray 12/31/21 13:45 IMPRESSION: Satisfactory postoperative changes. Electronically Signed: Benitez Anne MD at 16:49 EDT , Physical Exam Narrative Exam I found patient lying comfortably in bed working with therapy. Patient has good motion of the left leg. She has no respiratory distress, speaking in full sentences. Good motion of the upper extremities. The dressing is intact there is a small blood spot to the distal third, however this is from the injection postoperatively of the lidocaine. Patient has no calf tenderness. Neurovascular is otherwise intact. Const alert and oriented x3 HEENT Head and Scalp: atraumatic Eyes PERRL Neuro CN's II-XII intact bilaterally Psych mental status grossly normal Assessment & Plan Assessment/Plan (1) Status post total right knee replacement not using cement: PLAN: 1. Continue all pain medications as prescribed 2. Aspirin 81 mg 1 p.o. every 12 hours x30 days for postop DVT prophylaxis 3. Encourage incentive spirometry 4. Weight-bear as tolerated with walker 5. Possible discharge to for floor rehab today
--- NOTE | 2022-01-01 07:59 | DCINST_ITS ---
Discharge Instructions Diet Discharge Diet: No restrictions Activity Discharge Activity: Return to Normal Activity and May Shower May shower in (days): 3 May resume sexual activity in: No Restrictions Ice area for (Minutes): 30 (Ice to knee when sitting or not ambulating) Weight Bearing Status: Weight bearing as tolerated Keep extremity elevated above heart level: Operative Extremity Dressing / Incision Call your doctor if your incision/area has: Continuous Slow Oozing, Sudden Increased Bleeding, Increased Pain/ Swelling, Increased Redness, Foul Smelling Discharge and Swelling at the incision site Call your doctor if you observe: Fever of 101 or Higher Remove Dressing in: 6 days Cleanse incision/area with: Soap & Water Follow Up Care Please Follow Up With: Gil Leonard When: As scheduled Test Results: Test results from this visit will be discussed in further detail at your follow- up appointment, if applicable. Discharge Plan Admission Admit Date/Time: 12/31/21 14:38 Primary Reason for Your Visit: Left total knee arthroplasty Attending Provider: Boby Pond Primary Care Provider: Shayna Keating Discharge Orders/Prescriptions Prescriptions: New acetaminophen 500 mg Tablet 1,000 mg PO Q8 14 Days Qty: 84 0RF aspirin 81 mg Tablet,Chewable 81 mg PO BID 30 Days Qty: 60 0RF oxycodone 5 mg Tablet 5 - 10 mg PO Q4H PRN PRN (Reason: Pain Score 4-10) 7 Days 0RF Continued albuterol sulfate 90 mcg/actuation HFA aerosol inhaler 2 puff inhalation Q6H PRN (Reason: shortness of breath or wheezing) Qty: 8.5 1RF citalopram 20 mg tablet 20 mg PO DAILY Qty: 90 3RF pantoprazole 40 mg tablet,delayed release (DR/EC) 40 mg PO DAILY Qty: 90 3RF pravastatin 40 mg tablet 40 mg PO QHS Qty: 90 3RF amlodipine 2.5 mg tablet 2.5 mg PO DAILY Qty: 90 1RF lisinopril 40 mg tablet 40 mg PO DAILY Qty: 90 1RF levothyroxine 100 mcg tablet 100 mcg PO DAILY Qty: 90 3RF lorazepam 0.5 mg tablet 0.5 mg PO DAILY PRN (Reason: sleep) Qty: 30 2RF Other Ambulatory Orders: 12 Lead EKG (Routine) Timeframe: 20211221 Location: None Selected Ordered By: Dr. Manpreet Montes De Oca Referrals / Follow Up: Shayna Keating MD [Primary Care Provider] - Disposition Disposition (needs filled in before D/C Order can be placed): Home, Self Care
[2022-01-01] MEDS: amLODIPine 2.5 MG Tablet PO (08:34)
[2022-01-01] MEDS: Senna/Docusate Sodium 1 Tablet 2 TABLET PO ×2 (08:34→20:50)
[2022-01-01] MEDS: Citalopram 20 MG Tablet PO (08:34)
[2022-01-01] MEDS: Pantoprazole Sodium 40 MG Tablet PO (08:34)
[2022-01-01] MEDS: Lisinopril 40 MG Tablet PO (08:35)
--- NOTE | 2022-01-01 08:50 | CASEMGMT ---
Social Work SW met with pt and son Bib and introduced self and role of SW. Assessment completed and discharge plans made. PCP: Zuri Specialists: omar Pond Insurance: Nadiya MIRZA Prescription Benefit: yes Living Will/HPOA: Pt states her sons Bib and Vinicius are HCPOA and she has a living will. Documents not on file LNOK: Alma Colvin and Bib Living Arrangements: Pt lives alone in a one story home with no steps to enter. Pt was independent prior to surgery with all levels of ADLs. Transportation: Pt was driving with no transportation issues DME: Walker, Shower Chair, Grab bars in shower Pt states she does not feel she can return home at this time due to living alone and no one available to assist her. Pt requesting short term SNF placement for rehab prior to returning home. SW provided pt with list of SNF providers including quality and resource use data and consistent with the patient's preferred geographic region, medical needs and insurance network. Pt's preferred provided it TCU. SW spoke with Oney[facility] in TCU and they do have a bed available. Pt will need insurance precert prior to discharge. Pt and son Bib aware. Plan: TCU, pending precert TR Lorenzo
[2022-01-01] MEDS: Aspirin 81 MG TAB.CHEW PO ×2 (09:32→20:50)
--- NOTE | 2022-01-01 14:42 | CASEMGMT ---
VAL CM in to discuss ALVAR[employer]O form with patient. RN CM explained ALVAR[employer]O form, patient voiced understanding. Pt signed form and filed in chart. Pt provided with a copy of signed ALVAR[employer]O form. Patient had no further questions or concerns at this time.
[2022-01-01] MEDS: Pravastatin 40 MG Tablet PO (20:50)
[2022-01-01] MEDS: LORazepam 0.5 MG Tablet PO (20:50)
[2022-01-02] VITALS (8 sets, daily range): BP systolic 123–147; BP diastolic 52–72; PULSE 77–87; RESP 14–18; TEMP 36.8–37.2; O2SAT 91–94
[2022-01-02] MEDS: oxyCODONE 5 MG Tablet PO ×2 (00:43→09:45)
[2022-01-02] MEDS: Levothyroxine 100 MCG Tablet PO (05:45)
[2022-01-02] MEDS: Acetaminophen 500 MG Tablet 1000 MG PO ×3 (05:46→21:47)
--- NOTE | 2022-01-02 09:00 | NURSING ---
Patient saturating at 91% when lying in bed on 2LNC, once up and ambulatory patient saturation increases to 94% 2LNC.
[2022-01-02] MEDS: Aspirin 81 MG TAB.CHEW PO ×2 (09:46→21:46)
[2022-01-02] MEDS: Citalopram 20 MG Tablet PO (09:46)
[2022-01-02] MEDS: Senna/Docusate Sodium 1 Tablet 2 TABLET PO ×2 (09:46→21:46)
[2022-01-02] MEDS: Pantoprazole Sodium 40 MG Tablet PO (09:46)
[2022-01-02] MEDS: amLODIPine 2.5 MG Tablet PO (09:46)
[2022-01-02] MEDS: Lisinopril 40 MG Tablet PO (09:46)
[2022-01-02] MEDS: Ondansetron 4 MG/2 ML Vial IV (09:48)
[2022-01-02] MEDS: 0.9% Saline Lock 10 ML Syringe IV (09:49)
--- NOTE | 2022-01-02 10:15 | PCM.PN.ORT ---
Subjective Subjective Patient lying in bed resting comfortably. Patient states her pain has been very well managed. Patient states she is ready for discharge and admit to TCU for continued rehab. Patient denies chest pain, shortness of breath, calf pain, nausea vomiting. No other complaints at this time Objective Data Objective Data Vital Signs: Vital Signs Temp Pulse Resp BP Pulse Ox 98.6 F 82 16 134/62 H 94 01/02/22 09:04 01/02/22 09:04 01/02/22 09:04 01/02/22 09:04 01/02/22 09:33 Oxygen Flow Rate (L/min) 2 Oxygen Delivery Method Room Air Weight: 102.3 kg Body Mass Index (BMI) 41.2 Intake & Output: Intake and Output for Last 24 Hours 12/31/21 01/01/22 01/02/22 23:59 23:59 23:59 Intake Total 4152 / 4152 840 / 840 1000 / 1000 Output Total 600 / 600 100 / 100 Balance 3552 / 3552 740 / 740 1000 / 1000 Lab / Micro Data Result Diagrams: 01/01/22 04:47 01/01/22 04:47 Micro: Microbiology 12/21/21 12:18 Interface Orders Nasal Screen MRSA/MSSA - Final Physical Exam Narrative Exam I found patient laying comfortably in bed. Patient does have 2 L of O2 via nasal cannula. Patient states that they feel her pulse ox is dropped but has no complaint of shortness of breath. Patient speaking in full sentences. Patient is lying comfortably in a supine position without respiratory distress. Patient has excellent range of motion of the upper extremities. She has good range of motion of the right knee and ankle. Left knee is cool to touch nonerythematous. The dressing is clean dry intact. Patient has no calf tenderness neurovascular is otherwise intact. Patient afebrile. Const alert and oriented x3 General Appearance: cooperative HEENT normocephalic Eyes PERRL Resp normal respiratory effort and no use of accessory muscles Effort and Inspection: able to speak in complete sentences Neuro CN's II-XII intact bilaterally Psych mental status grossly normal and affect normal Assessment & Plan Assessment/Plan (1) Status post total left knee replacement not using cement: PLAN: Plan 1. Continue all pain medications as prescribed 2. Aspirin 81 mg 1 p.o. every 12 hours x30 days for postop DVT prophylaxis 3. Ambulate full weightbearing with use of walker 4. Encourage incentive spirometry 5. Continue O2 supplementation of 2 L if pulse ox at 90. 6. Follow-up in 2 weeks with Gil Leonard PA-C 7. Discharge to TCU when cleared with insurance
--- NOTE | 2022-01-02 13:54 | CASEMGMT ---
Social Work SW spoke with TCU and determination on precert has not yet been obtained. Pt updated and nursing aware. TR Lorenzo
[2022-01-02] MEDS: LORazepam 0.5 MG Tablet PO (19:46)
[2022-01-02] MEDS: Pravastatin 40 MG Tablet PO (21:46)
[2022-01-03 04:53] VITALS: BP 129/64; PULSE 78; RESP 18; TEMP 37.2; O2SAT 94
[2022-01-03] MEDS: Acetaminophen 500 MG Tablet 1000 MG PO ×2 (06:04→13:46)
[2022-01-03] MEDS: Levothyroxine 100 MCG Tablet PO (06:04)
[2022-01-03 07:09] VITALS: O2SAT 94
[2022-01-03 09:22] VITALS: BP 123/52; PULSE 81; RESP 18; TEMP 37.2; O2SAT 92
[2022-01-03] MEDS: Lisinopril 40 MG Tablet PO (09:28)
[2022-01-03] MEDS: Aspirin 81 MG TAB.CHEW PO (09:28)
[2022-01-03] MEDS: Senna/Docusate Sodium 1 Tablet 2 TABLET PO (09:29)
[2022-01-03] MEDS: Citalopram 20 MG Tablet PO (09:29)
[2022-01-03] MEDS: amLODIPine 2.5 MG Tablet PO (09:29)
[2022-01-03] MEDS: Pantoprazole Sodium 40 MG Tablet PO (09:29)
[2022-01-03 10:25] VITALS: O2SAT 92
--- NOTE | 2022-01-03 11:04 | CASEMGMT ---
Addendum entered by Michelle Salazar 01/03/22 11:27: Received tc back from Emily at [facility], they are able to accept pt for SOC tomorrow. VAL CM in to pt room, pt is aware of acceptance and they will be in touch with her to schedule a time for tomorrow. Pt has a walker at home and denies further needs. Original Note: Notified that pt would like to return home with [facility]. Pt chooses [facility]. TC to [facility], left message on intake's Emily conti with the referral. Will await acceptance.
--- NOTE | 2022-01-03 11:06 | CASEMGMT ---
Social Work SW spoke with Oneyda in TCU and insurance has requested updated clinicals and states they will have determination today. SW met with pt to inform of this. Pt states she is frustrated with insurance and lack of determination and feels that she is able to return home at this time. Pt states she has wheeled walker and shower chair. Pt son will transport her home. Pt is agreeable to home health therapy. SW provided pt with list of Home Health providers including quality and resource use data and consistent with the patient's preferred geographic region, medical needs and insurance network. Pt preferred provider is [facility]. RNCM updated and will make home health referral. Beside nurse and TCU made aware of pt decision to return home. Physician to be notified when arrives on the unit. TR Lorenzo
[2022-01-03 11:08] VITALS: O2SAT 92
[2022-01-03 13:43] VITALS: BP 117/52; PULSE 74; RESP 18; TEMP 37.5; O2SAT 92
--- NOTE | 2022-01-03 13:45 | PCM.PN.ORT ---
Subjective Subjective Patient lying in bed, pain is well-managed. Patient is ready for discharge home. Patient is very frustrated as she is waited for 3 days for admit to TCU however her insurance company never granted approval. Patient this time has no other complaints. Objective Data Objective Data Vital Signs: Vital Signs Temp Pulse Resp BP Pulse Ox 99.0 F 81 18 123/52 H 92 01/03/22 09:22 01/03/22 09:22 01/03/22 09:22 01/03/22 09:22 01/03/22 11:08 Oxygen Flow Rate (L/min) 2 Oxygen Delivery Method Room Air Weight: 102.3 kg Body Mass Index (BMI) 41.2 Intake & Output: Intake and Output for Last 24 Hours 01/01/22 01/02/22 01/03/22 23:59 23:59 23:59 Intake Total 840 / 840 1000 / 1000 Output Total 100 / 100 0 / 0 Balance 740 / 740 1000 / 1000 0 / 0 Lab / Micro Data Result Diagrams: 01/01/22 04:47 01/01/22 04:47 Micro: Microbiology 12/21/21 12:18 Interface Orders Nasal Screen MRSA/MSSA - Final Physical Exam Narrative Exam patient lying comfortably in bed. No respiratory distress, speaking in full sentences. Moving upper extremities without limitations. The dressing is clean dry intact. No calf tenderness. No signs of symptom DVT. Neurovascular is otherwise intact. Vital signs and labs all within normal limits. Const alert and oriented x3 General Appearance: cooperative HEENT normocephalic Eyes PERRL Neuro CN's II-XII intact bilaterally Psych mental status grossly normal and affect normal Assessment & Plan Assessment/Plan (1) Status post total left knee replacement not using cement: PLAN: Plan 1. Continue all pain medications as prescribed 2. Aspirin 81 mg 1 p.o. every 12 hours x30 days for postop DVT prophylaxis 3. Encourage incentive spirometry 4. Discharge home today 5. Home therapy 6. Follow-up as scheduled.
== END 2022-01-03 15:30 | disposition home or self-care (01) ==
LOC: SDC 14:56 → MS3 14:57
PROVIDERS: Anesthesiology; Admitting Provider Orthopaedic Surgery; PCP Internal Medicine; Referring Provider Orthopaedic Surgery; Visit Provider Orthopaedic Surgery
PROC: 0SRD0JZ Replacement of Left Knee Joint with Synthetic Substitute, Open Approach (ICD-10-PCS; CPT 27447; principal; 2021-12-31 11:15)
DX: M17.12 Unilateral primary osteoarthritis, left knee (principal); C90.00 Multiple myeloma not having achieved remission; L40.9 Psoriasis, unspecified; K21.9 Gastro-esophageal reflux disease without esophagitis; E03.9 Hypothyroidism, unspecified; E78.5 Hyperlipidemia, unspecified; J45.909 Unspecified asthma, uncomplicated; F41.8 Other specified anxiety disorders; Z79.899 Other long term (current) drug therapy; Z79.890 Hormone replacement therapy; Z87.891 Personal history of nicotine dependence; M71.22 Synovial cyst of popliteal space [Baker], left knee; I35.8 Other nonrheumatic aortic valve disorders; I10 Essential (primary) hypertension; K58.9 Irritable bowel syndrome, unspecified; I34.0 Nonrheumatic mitral (valve) insufficiency
CPT/HCPCS: 27447; S2900; 01402; 64447; 36415; 73560; 80048; 82962; 83735; 85027; 85610; 85730; 87081; 88305; 88311; 93005; 96361; 96365; 96366; 96375; 96376; 97110; 97116; 97162; 97166; 97530; 97535; 97802; 99218; 99251; C1776; J7120; A4216; G0378; G0463; J2405; J3475

== ENCOUNTER → 2022-08-09 | Outpatient (CLI) | payer MEDICARE, SELFPAY ==
--- NOTE | 2022-08-09 07:45 | RAD_ITS ---
STUDY: AIR CONTRAST ESOPHAGRAM AND UPPER GI SERIES REASON FOR EXAM: Female, 77 years old. K44.9 - Diaphragmatic hernia without obstruction or gangrene FLUOROSCOPY TIME (if supplied): (1 minute and 34 seconds) minutes/seconds. 20 one images were obtained. TECHNIQUE: SINGLE CONTRAST AND AIR CONTRAST FLUOROSCOPIC IMAGES. COMPARISON: None. FINDINGS: The cervical esophagus demonstrates normal motility without aspiration. There is no stricture or extrinsic mass effect. No intraluminal polypoid mass is identified. The thoracic esophagus distends well without stricture or mucosal fold thickening. No mucosal ulcerations are identified. There is no extrinsic mass effect. There are no diverticula. Moderate size hiatal hernia with gastroesophageal reflux. The patient ingested a 12 mm tablet of barium without any difficulty. The stomach distends well without mucosal fold thickening or mucosal ulceration. There is no intraluminal mass. The duodenal bulb is freely distensible without deformity or ulceration. The duodenal sweep is normal in position and caliber. RAD/Upper GI w/BA Swallow IMPRESSION: Moderate sized hiatal hernia with gastroesophageal reflux. Electronically Signed: Maikol Nunes MD at 13:30 EST ,
== END | disposition home or self-care (01) ==
PROVIDERS: PCP Internal Medicine; Referring Provider Surgery; Visit Provider Surgery
DX: K44.9 Diaphragmatic hernia without obstruction or gangrene (principal); K21.9 Gastro-esophageal reflux disease without esophagitis
CPT/HCPCS: 74246

== ENCOUNTER 2022-11-12 16:16 | Emergency (ER) | payer MEDICARE, SELFPAY ==
[2022-11-12 16:17] VITALS: BP 149/76; PULSE 76; RESP 18; TEMP 36.4; O2SAT 99; BMI 40.8
--- NOTE | 2022-11-12 16:24 | RAD_ITS ---
EXAM: XR RIGHT KNEE COMPLETE, 4 OR MORE VIEWS CLINICAL INDICATION: FALL TECHNIQUE: Four or more views of the right knee. This report was created using [employer] report generation technology. COMPARISON: 12.31.21 FINDINGS: BONES/JOINTS: Total right knee arthroplasty. No acute fracture. No subluxation. Normal alignment. No sclerotic or destructive changes observed. SOFT TISSUES: Unremarkable. No soft tissue swelling or gas. No radiopaque foreign body. RAD/Knee 4 or More Views IMPRESSION: No acute findings in the right knee. Electronically Signed: Sanjiv Cuba MD at 16:42 EDT ,
--- NOTE | 2022-11-12 18:10 | ED.VIS.LOWEX ---
HPI History of Present Illness Chief Complaint: Lower Extremity Injury Detail of Chief Complaint: Fall onto right knee Informant: patient Narrative Narrative: Patient presents after a fall onto her right knee. After exercising today she caught her toe on a carpet and fell landing on her flexed right knee. She had her right knee replaced in 2006. She called Dr. Pond's office due to pain and was encouraged to come to the ER for imaging. She has been able to walk on her leg. [facility] Medical History Arthritis Asthma Basal cell carcinoma Cancer Chronic bronchitis Contact dermatitis and eczema due to plant Depression with anxiety Diarrhea GERD (gastroesophageal reflux disease) High cholesterol History of melanoma HTN (hypertension) Hyperlipemia Hypothyroidism IBS (irritable bowel syndrome) Insomnia Knee pain Loose, teeth Myeloma Plantar fascia syndrome PONV (postoperative nausea and vomiting) Rash Thyroid disease Home Medications albuterol sulfate 90 mcg/actuation aerosol inhaler 2 puff inhalation Q6H PRN shortness of breath or wheezing #8.5 grams 02/05/21 [Rx Last Taken Unknown] citalopram 20 mg tablet 20 mg PO DAILY #90 tabs 11/22/21 [Rx Last Taken Unknown] pantoprazole 40 mg tablet,delayed release 40 mg PO DAILY #90 tabs 11/22/21 [Rx Last Taken Unknown] pravastatin 40 mg tablet 40 mg PO QHS #90 tabs 11/22/21 [Rx Last Taken Unknown] acetaminophen 500 mg tablet 1,000 mg PO Q8 14 days #84 tabs 01/01/22 [Rx Last Taken Unknown] amlodipine 2.5 mg tablet 2.5 mg PO DAILY #90 tabs 03/01/22 [Rx Last Taken Unknown] lisinopril 40 mg tablet 40 mg PO DAILY #90 tabs 03/01/22 [Rx Last Taken Unknown] nitrofurantoin monohydrate/macrocrystals 100 mg capsule (Macrobid) 100 mg PO BID #20 caps 07/29/22 [Rx Last Taken Unknown] lorazepam 0.5 mg tablet 0.5 mg PO DAILY PRN sleep #90 tabs 09/11/22 [Rx Last Taken Unknown] levothyroxine 100 mcg tablet 100 mcg PO DAILY #90 tabs 10/10/22 [Rx Last Taken Unknown] Allergy/AdvReac Type Severity Reaction Status Date / Time Sulfa (Sulfonamide AdvReac Rash Verified 11/12/22 16:19 Antibiotics) Family History Mother Hypertension Hyperlipemia Osteoporosis Father Hypertension Hyperlipemia Other Arthritis Heart disease Surgical History History of cataract extraction History of hysterectomy History of knee replacement Social History Smoking Status: Never smoker alcohol intake: never substance use type: does not use ROS ROS ED Constitutional Constitutional ED: Denies chills or fever(s) Eyes Eyes: Denies change in vision ENT ENT ED: Denies rhinorrhea or sore throat Cardiovascular Cardiovascular: Denies chest pain Respiratory/Chest Respiratory/Chest: Denies cough or dyspnea Gastrointestinal Gastrointestinal: Denies abdominal pain, nausea or vomiting Musculoskeletal Musculoskeletal: Reports extremity pain; Denies back pain Integumentary Denies Abrasions or rash Neurologic Neurologic: Denies headache(s) or weakness Allergic/Immunologic Allergic/Immunologic ED: Denies lip swelling or urticaria EXAM Physical Exam Const Vital Signs: 11/12/22 16:17 Temperature 97.5 F L Temperature Source Temporal Pulse Rate 76 Respiratory Rate 18 Blood Pressure 149/76 H Blood Pressure Mean 100 Pulse Ox 99 Oxygen Delivery Method Room Air Positive well nourished and well developed General Appearance ED: well developed HEENT Reports normocephalic and head/scalp atraumatic Eyes PERRL and EOMs intact bilaterally Neck supple Chest Wall inspection of chest normal and palpation of chest normal Resp normal respiratory effort and clear to auscultation bilaterally Cardio regular rate and regular rhythm GI Palpation: soft Extremity Extremity Narrative: Mild tenderness of the anterior right knee with early bruising noted. Well-healed surgical scar. Ligaments tight on testing. Strong distal pulses and good range of motion. Neuro oriented x3 and no sensory deficits noted Sensorium / Orientation: alert Motor Exam: strength 5/5 throughout Psych mental status grossly normal MDM MDM MDM Narrative Medical decision making narrative: Right knee x-ray obtained per nursing protocol. On my review of images I see no acute abnormalities. Hardware is intact with no evidence of loosening. No evidence of acute fracture. Radiology interpretation is reviewed and agrees. Patient is reassured with a normal x-ray. She will continue supportive care. Radiography Diagnostic Testing: Clinical Impression(s) from Imaging Studies Knee X-Ray 11/12/22 16:24 IMPRESSION: No acute findings in the right knee. Electronically Signed: Sanjiv Cuba MD at 16:42 EDT Reading Location ID and State: [facility] / OR , Service support , Discharge Plan Triage Chief Complaint: Lower Extremity Injury ED Provider: Amalia Cosme Dx/Rx/DC Orders Clinical Impression: Fall, Contusion of knee, right Instructions: ED Contusion, Lower Extremity Prescriptions: No Action albuterol sulfate 90 mcg/actuation HFA aerosol inhaler 2 puff inhalation Q6H PRN (Reason: shortness of breath or wheezing) Qty: 8.5 1RF citalopram 20 mg tablet 20 mg PO DAILY Qty: 90 3RF pantoprazole 40 mg tablet,delayed release (DR/EC) 40 mg PO DAILY Qty: 90 3RF pravastatin 40 mg tablet 40 mg PO QHS Qty: 90 3RF acetaminophen 500 mg Tablet 1,000 mg PO Q8 14 Days Qty: 84 0RF amlodipine 2.5 mg tablet 2.5 mg PO DAILY Qty: 90 3RF lisinopril 40 mg tablet 40 mg PO DAILY Qty: 90 3RF nitrofurantoin monohyd/m-cryst [Macrobid] 100 mg capsule 100 mg PO BID Qty: 20 0RF Rx Instructions: must administer with a meal/food lorazepam 0.5 mg tablet 0.5 mg PO DAILY PRN (Reason: sleep) Qty: 90 0RF levothyroxine 100 mcg tablet 100 mcg PO DAILY Qty: 90 3RF Primary Care Provider: Shayna Keating Referrals: Shayna Keating MD [Primary Care Provider] - Boby Pond DO [Med Staff - Active Staff] - As Needed Disposition Disposition: Home, Self Care
[2022-11-12 18:18] VITALS: BP 134/78; PULSE 67; RESP 18; TEMP 36.6; O2SAT 99
== END 2022-11-12 18:19 | disposition home or self-care (01) ==
LOC: ED 18:17
PROVIDERS: Emergency Provider Emergency Medicine; PCP Internal Medicine; Visit Provider Emergency Medicine
DX: S80.01XA Contusion of right knee, initial encounter (principal); E78.00 Pure hypercholesterolemia, unspecified; I10 Essential (primary) hypertension; J45.909 Unspecified asthma, uncomplicated; W01.0XXA Fall on same level from slipping, tripping and stumbling without subsequent striking against object, initial encounter; Z96.651 Presence of right artificial knee joint
CPT/HCPCS: 73564; 99282

== ENCOUNTER → 2022-11-21 | Outpatient (CLI) | payer MEDICARE, SELFPAY | END | disposition home or self-care (01) | LOC: LABSPEC 15:35 | PROVIDERS: PCP Internal Medicine; Referring Provider Internal Medicine; Visit Provider Internal Medicine | DX: J98.8 Other specified respiratory disorders (principal) | CPT/HCPCS: 87635; U0003; U0005 ==

== ENCOUNTER 2023-03-19 12:08 | Emergency (ER) | payer MEDICARE, SELFPAY ==
[2023-03-19 12:08] VITALS: BP 166/76; PULSE 65; RESP 14; TEMP 36.2; O2SAT 97; BMI 40.3
--- NOTE | 2023-03-19 12:38 | EDS_ITS ---
HPI History of Present Illness Chief Complaint: Chest Pain Informant: patient Onset/Context/Timing Onset: Days Activity at onset: gradual Timing: Waxes and wanes Location: Left Chest Narrative Narrative: Patient presents secondary to left-sided chest pain. She reports pain across the left upper breast and into the axilla area for the past 2 days. She states has had pain here intermittently for the last couple years in the same area. She reports chronic shortness of breath that is not any different than baseline. She did just get back from a recent vacation. Patient states the longest flight she was on was an hour and a half. She was up and ambulatory during her trip. She denies history of coronary disease or blood clots. [facility] Medical History Arthritis Asthma Basal cell carcinoma Cancer Chronic bronchitis Contact dermatitis and eczema due to plant Depression with anxiety Diarrhea GERD (gastroesophageal reflux disease) High cholesterol History of melanoma HTN (hypertension) Hyperlipemia Hypothyroidism IBS (irritable bowel syndrome) Insomnia Knee pain Loose, teeth Myeloma Plantar fascia syndrome PONV (postoperative nausea and vomiting) Rash Thyroid disease Home Medications albuterol sulfate 90 mcg/actuation aerosol inhaler 2 puff inhalation Q6H PRN shortness of breath or wheezing #8.5 grams 02/05/21 [Rx Last Taken Unknown] acetaminophen 500 mg tablet 1,000 mg (2 x 500 mg) PO Q8 14 days #84 tabs 01/01/22 [Rx Last Taken Unknown] levothyroxine 100 mcg tablet 100 mcg PO DAILY #90 tabs 10/10/22 [Rx Last Taken Unknown] azithromycin 250 mg tablet (Zithromax) See Rx Instructions PO .COMPLEX #6 tabs 11/21/22 [Rx Last Taken Unknown] codeine 10 mg-guaifenesin 100 mg/5 mL oral liquid 5 ml PO Q6H PRN cold symptoms #120 mL 11/21/22 [Rx Last Taken Unknown] pravastatin 40 mg tablet 40 mg PO QHS #90 tabs 11/25/22 [Rx Last Taken Unknown] azithromycin 250 mg tablet (Zithromax) See Rx Instructions PO .COMPLEX #6 tabs 12/10/22 [Rx Last Taken Unknown] methylprednisolone 4 mg tablets in a dose pack (Medrol (Sharad)) See Rx Instructions PO PER PKG DIR #21 tabs 12/10/22 [Rx Last Taken Unknown] citalopram 20 mg tablet 20 mg PO DAILY #90 tabs 12/11/22 [Rx Last Taken Unknown] lorazepam 0.5 mg tablet 0.5 mg PO DAILY PRN sleep #90 tabs 12/11/22 [Rx Last Taken Unknown] pantoprazole 40 mg tablet,delayed release 40 mg PO DAILY #90 tabs 02/05/23 [Rx Last Taken Unknown] amlodipine 2.5 mg tablet 2.5 mg PO DAILY #90 tabs 02/24/23 [Rx Last Taken Unknown] lisinopril 40 mg tablet 40 mg PO DAILY #90 tabs 02/24/23 [Rx Last Taken Unknown] scopolamine base 1 mg over 3 days transdermal patch 1 patch transdermal Q72H #4 ea 03/05/23 [Rx Last Taken Unknown] Allergy/AdvReac Type Severity Reaction Status Date / Time Sulfa (Sulfonamide AdvReac Rash Verified 03/19/23 12:10 Antibiotics) Family History Mother Hypertension Hyperlipemia Osteoporosis Father Hypertension Hyperlipemia Other Arthritis Heart disease Surgical History History of cataract extraction History of hysterectomy History of knee replacement Social History Smoking Status: Never smoker alcohol intake: never substance use type: does not use ROS ROS ED Constitutional Constitutional ED: Denies chills or fever(s) Eyes Eyes: Denies change in vision or discharge from eye(s) ENT ENT ED: Denies discharge from eye(s), rhinorrhea or sore throat Cardiovascular Cardiovascular: Reports chest pain; Denies palpitations Respiratory/Chest Respiratory/Chest: Denies cough or dyspnea Gastrointestinal Gastrointestinal: Denies abdominal pain, nausea or vomiting Genitourinary Genitourinary ED: Denies dysuria Musculoskeletal Musculoskeletal: Denies back pain or extremity pain Integumentary Denies Abrasions or rash Neurologic Neurologic: Denies headache(s) or weakness Psychiatric Psychiatric: Denies anxiety or depression Allergic/Immunologic Allergic/Immunologic ED: Denies lip swelling or urticaria EXAM Physical Exam Const Vital Signs: 03/19/23 12:08 03/19/23 12:40 Temperature 97.1 F L Temperature Source Temporal Pulse Rate 65 Respiratory Rate 14 Blood Pressure 166/76 H Blood Pressure Mean 106 Pulse Ox 97 95 Oxygen Delivery Method Room Air Room Air Positive well nourished and well developed General Appearance ED: well developed HEENT Reports normocephalic and head/scalp atraumatic Eyes PERRL and EOMs intact bilaterally Neck supple Chest Wall inspection of chest normal Chest Narrative: Reproducible pain along the lateral portion of the left upper chest just superior to the left breast. No palpable masses appreciated. No overlying skin change. Resp normal respiratory effort and clear to auscultation bilaterally Cardio regular rate and regular rhythm GI normal to inspection, nondistended, normoactive bowel sounds Palpation: soft Back/Spine no CVA tenderness Extremity normal to inspection Neuro oriented x3 and no sensory deficits noted Sensorium / Orientation: alert Motor Exam: strength 5/5 throughout Psych mental status grossly normal Skin no rashes or lesions noted MDM MDM MDM Narrative Medical decision making narrative: Patient did take 1 baby aspirin this morning. 3 additional baby aspirin are given at this time. Patient placed on production broacher. EKG obtained to evaluate for cardiac arrhythmia/ischemia. Chest x-ray obtained to evaluate for acute lung pathology, cardiac size, or mediastinal abnormality. Labwork obtained to evaluate for leukocytosis, anemia, and electrolyte derangement. History & Record Review Discussion w/independent historian: Patient Lab Data Attestation: I reviewed the patient's lab results. Labs: Laboratory Results - last 24 hr 03/19/23 12:07 WBC 7.1 RBC 4.20 Hgb 10.8 L Hct 35.6 L MCV 84.8 MCH 25.7 L MCHC 30.3 L RDW Std Deviation 47.1 H RDW Coeff of Lgadis 15.4 H Plt Count 291 MPV 9.5 Immature Gran % (Auto) 0.300 Neut % (Auto) 48.1 Lymph % (Auto) 38.8 Andrews % (Auto) 10.4 H Eos % (Auto) 1.8 Baso % (Auto) 0.6 Absolute Neuts (auto) 3.4 Absolute Lymphs (auto) 2.77 Nucleated RBC % 0 Sodium 138 Potassium 3.9 Chloride 107 Carbon Dioxide 26.0 Anion Gap 5 BUN 13 Creatinine 0.69 Estim Creat Clear Calc 41.33 Est GFR (MDRD) Af Amer 106 Est GFR (MDRD) Non-Af 88 BUN/Creatinine Ratio 18.8 Glucose 103 Calcium 9.0 Troponin I High Sens 9 Radiography Chest X-Ray - ED: 2 View, Read by ED Physician, Normal, Heart, Lungs and Mediastinum Diagnostic Testing: Clinical Impression(s) from Imaging Studies Chest X-Ray 03/19/23 13:20 IMPRESSION: Stable examination. No acute abnormality is seen. Electronically Signed: Maikol Nunes MD at 14:02 EDT , EKG Initial EKG: Attestation: I personally reviewed and interpreted this EKG as follows: Interpretation: Sinus Rhythm (Sinus rhythm at 65 bpm. No acute ischemia.) Treatment and Re-Evaluation :: CBC is unremarkable with normal white count. Hemoglobin is slightly low at 10.8. Chemistry studies reveal normal renal function and normal potassium. Troponin is normal at 9. Two-view chest x-ray per my interpretation reveals no acute abnormalities. Radiology interpretation is reviewed and agrees. On repeat evaluation patient resting comfortably. She has had constant pain for the past 2 days with negative cardiac work-up. In addition to this, her pain is reproducible with palpation. I believe this is all chest wall strain. That being said I still recommended she follow with her primary care physician and get a mammogram as she does admit that she has not been following up with this regularly. Return instructions given. Discharge Plan Triage Chief Complaint: Chest Pain ED Provider: Amalia Cosme Dx/Rx/DC Orders Clinical Impression: Chest wall pain Instructions: ED Chest Pain, Noncardiac Prescriptions: No Action albuterol sulfate 90 mcg/actuation HFA aerosol inhaler 2 puff inhalation Q6H PRN (Reason: shortness of breath or wheezing) Qty: 8.5 1RF azithromycin [Zithromax] 250 mg tablet See Rx Instructions PO .COMPLEX Qty: 6 0RF Rx Instructions: For 250 mg dose pack: take 500 mg today (day 1), then 250 mg for 4 days (days 2-5) PO codeine-guaifenesin 10-100 mg/5 mL liquid 5 ml PO Q6H PRN (Reason: cold symptoms) Qty: 120 0RF acetaminophen 500 mg Tablet 1,000 mg PO Q8 14 Days Qty: 84 0RF levothyroxine 100 mcg tablet 100 mcg PO DAILY Qty: 90 3RF pravastatin 40 mg tablet 40 mg PO QHS Qty: 90 3RF azithromycin [Zithromax] 250 mg tablet See Rx Instructions PO .COMPLEX Qty: 6 0RF Rx Instructions: For 250 mg dose pack: take 500 mg today (day 1), then 250 mg for 4 days (days 2-5) PO methylprednisolone [Medrol (Sharad)] 4 mg tablets,dose pack See Rx Instructions PO PER PKG DIR Qty: 21 0RF Rx Instructions: PO PER PKG DIR citalopram 20 mg tablet 20 mg PO DAILY Qty: 90 3RF lorazepam 0.5 mg tablet 0.5 mg PO DAILY PRN (Reason: sleep) Qty: 90 0RF pantoprazole 40 mg tablet,delayed release (DR/EC) 40 mg PO DAILY Qty: 90 3RF amlodipine 2.5 mg tablet 2.5 mg PO DAILY Qty: 90 3RF lisinopril 40 mg tablet 40 mg PO DAILY Qty: 90 3RF scopolamine base 1 mg over 3 days patch 3 day 1 patch transdermal Q72H Qty: 4 0RF Primary Care Provider: Shayna Keating Referrals: Shayna Keating MD [Primary Care Provider] - 1-2 Weeks Disposition Disposition: Home, Self Care
[2023-03-19 12:40] VITALS: O2SAT 95
[2023-03-19 12:56] LABS: Absolute Lymphocyte Count 2.77 X10^3/uL (0.83-4.51); Absolute Neutrophil Count 3.4 X10^3/uL (2.0-7.7); Basophil# 0.04 X10^3/uL; Basophil% 0.6 % (0-1); Eosinophil# 0.13 X10^3/uL; Eosinophils% 1.8 % (0-5); Hematocrit 35.6 % (37-47); Hemoglobin 10.8 g/dL (12.0-15.0); Lymphocyte # 2.77 X10^3/ul (0.83-4.51); Lymphocyte % 38.8 % (19-41); Mean Corp Hgb Conc 30.3 g/dL (32-36); Mean Corpuscular Hgb 25.7 pg (27.0-32.0); Mean Corpuscular Volume 84.8 fL (81-99); Mean Platelet Vol. 9.5 fl (6.2-12.0); Monocyte# 0.74 X10^3/uL; Monocyte% 10.4 % (0-10); NRBC Flagged by Analyzer 0 % (0-5); Neutrophil # 3.43 X10^3/uL (2.7-7.7); Neutrophil % 48.1 % (47-70); Platelet Count 291 K/mm3 (150-450); RBC Distribution Width CV 15.4 % (11.6-14.6); RBC Distribution Width SD 47.1 fl (35.1-43.9); White Blood Count 7.1 K/mm3 (4.4-11.0)
[2023-03-19] MEDS: Aspirin 81 MG TAB.CHEW 243 MG PO (13:05)
[2023-03-19 13:09] LABS: Anion Gap 5 (5-15); BUN 13 mg/dL (7-18); BUN/Creat Ratio 18.8 RATIO (10-20); Chloride 107 mmol/L (98-107); Creatinine, Serum 0.69 mg/dL (0.55-1.02); EST Glomerular Filtration Rate 88 mL/min (>60); Est Glom Filt Rate - Afr Amer 106 mL/min (>60); Estimated Creatinine Clearance 41.33 ml/min; Glucose 103 mg/dL (74-106); Potassium 3.9 mmol/L (3.5-5.1); Sodium Level 138 mmol/L (136-145); Troponin-I HS 9 pg/mL (3.0-54.0)
--- NOTE | 2023-03-19 13:20 | RAD_ITS ---
STUDY: X-RAY CHEST REASON FOR EXAM: Female, 78 years old. Chest pain TECHNIQUE: PA and lateral views of the chest. COMPARISON: Comparison is made with prior study dated February 10, 2018. FINDINGS: EKG electrodes are seen. Stable mild elevation of the right hemidiaphragm. Scattered calcified granulomas. There is no demonstrated pleural abnormality. Normal size heart. Normal mediastinum and isabel. Normal visualized pulmonary arteries. There is atherosclerotic calcification of the aortic arch with tortuosity. There is demineralization of the osseous structures. Normal visualized ribs, clavicles, and shoulders. There is no demonstrated abnormality of the visualized soft tissue structures of the upper abdomen. RAD/Chest PA and Lateral IMPRESSION: Stable examination. No acute abnormality is seen. Electronically Signed: Maikol Nunes MD at 14:02 EDT ,
[2023-03-19 14:40] VITALS: BP 166/96
== END 2023-03-19 14:41 | disposition home or self-care (01) ==
PROVIDERS: Emergency Provider Emergency Medicine; PCP Internal Medicine; Visit Provider Emergency Medicine
DX: R07.89 Other chest pain (principal); I10 Essential (primary) hypertension; E78.00 Pure hypercholesterolemia, unspecified; E03.9 Hypothyroidism, unspecified; K21.9 Gastro-esophageal reflux disease without esophagitis; Z79.899 Other long term (current) drug therapy
CPT/HCPCS: 71046; 80048; 84484; 85025; 93005; 99285

== ENCOUNTER → 2023-07-04 | Outpatient (CLI) | payer MEDICARE, SELFPAY ==
[2023-07-04 12:16] LABS: Color, Urine Yellow (Yellow); Glucose, Dipstick Normal (Normal); Ketone-Dipstick 5 mg/dl (Negative); Leukocyte Esterase-Dipstick 500 /ul (Negative); Nitrite-Dipstick Positive (Negative); Occult Blood-Urine 50 /ul (Negative); Protein-Dipstick 100 mg/dl (Negative); Specific Gravity, Urine 1.015 (1.002-1.030); Urine Bilirubin Dipstick Negative (Negative); Urine Clarity Cloudy (Clear); Urine Urobilinogen 1 mg/dl (Normal)
[2023-07-04 12:26] LABS: Bacteria 2+ /hpf (None Seen); Mucous, Urine 2+ /hpf (<or=2+); Red Blood Cells-Urine 0-5 SEEN /hpf (0-5); Squamous Epithelial Cells - UA 0-5 SEEN /hpf (5-10); White Blood Cells 25-50 SEEN /hpf (0-5)
== END | disposition home or self-care (01) ==
PROVIDERS: PCP Internal Medicine; Referring Provider Internal Medicine; Visit Provider Internal Medicine
DX: N39.0 Urinary tract infection, site not specified (principal)
CPT/HCPCS: 81001; 87086; 87088; 87186

== ENCOUNTER → 2023-11-19 | Outpatient (CLI) | payer MEDICARE, SELFPAY ==
[2023-11-19 14:41] LABS: Absolute Lymphocyte Count 2.62 X10^3/uL (0.83-4.51); Absolute Neutrophil Count 4.4 X10^3/uL (2.0-7.7); Basophil# 0.06 X10^3/uL; Basophil% 0.8 % (0-1); Eosinophil# 0.11 X10^3/uL; Eosinophils% 1.4 % (0-5); Hemoglobin 10.9 g/dL (12.0-15.0); Lymphocyte # 2.62 X10^3/ul (0.83-4.51); Lymphocyte % 33.1 % (19-41); Mean Corp Hgb Conc 30.3 g/dL (32-36); Mean Corpuscular Hgb 25.3 pg (27.0-32.0); Mean Corpuscular Volume 83.5 fL (81-99); Mean Platelet Vol. 9.1 fl (6.2-12.0); Monocyte# 0.68 X10^3/uL; Monocyte% 8.6 % (0-10); NRBC Flagged by Analyzer 0 % (0-5); Neutrophil # 4.39 X10^3/uL (2.7-7.7); Neutrophil % 55.5 % (47-70); Platelet Count 304 K/mm3 (150-450); RBC Distribution Width CV 15.4 % (11.6-14.6); RBC Distribution Width SD 46.9 fl (35.1-43.9); Red Blood Count 4.31 M/mm3 (4.2-5.4); White Blood Count 7.9 K/mm3 (4.4-11.0)
[2023-11-19 14:59] LABS: Vitamin D,25 Hydroxy 24.3 ng/mL
[2023-11-19 15:05] LABS: ALB/GLOB Ratio 0.8 RATIO (0.9-2.4); AST(SGOT) 17 U/L (15-37); Alanine Aminotransfer ALT/SGPT 21 U/L (13-56); Albumin, Serum 3.5 g/dL (3.2-5.0); Alkaline Phosphatase 77 U/L (45-117); Anion Gap 5 (5-15); BUN 15 mg/dL (7-18); BUN/Creat Ratio 16.2 RATIO (10-20); Calcium,Total 9.4 mg/dL (8.5-10.1); Chloride 107 mmol/L (98-107); Cholesterol 189 mg/dL (200); Creatinine, Serum 0.93 mg/dL (0.55-1.02); EST Glomerular Filtration Rate 63 mL/min (>60); Est Glom Filt Rate - Afr Amer 76 mL/min (>60); Free T3 2.5 pg/mL (2.18-3.98); Globulin 4.3 g/dL (2.2-4.2); Glucose 101 mg/dL (74-106); High Density Lipoprotein 53 mg/dL; Potassium 4.2 mmol/L (3.5-5.1); Protein, Total 7.8 g/dL (6.4-8.2); Sodium Level 138 mmol/L (136-145); T4 Free Direct 1.27 ng/dL (0.76-1.46); Thyroid Stim Hormone (TSH) 1.67 uIU/mL (0.358-3.74); Triglycerides 175 mg/dL; Very Low Density Lipoprotein 35 mg/dL (5-40)
[2023-11-19 16:18] LABS: Iron 37 ug/dL (50-170); Iron Binding Capacity,Total 450 ug/dL (250-450); PERCENT IRON SATURATION 8.2 % (15.0-55.0)
[2023-11-19 16:25] LABS: Vitamin B12 275 pg/mL (211-911)
== END | disposition home or self-care (01) ==
LOC: LAB 14:21
PROVIDERS: PCP Internal Medicine; Referring Provider Internal Medicine; Visit Provider Internal Medicine
DX: Z13.220 Encounter for screening for lipoid disorders (principal); I10 Essential (primary) hypertension; E78.5 Hyperlipidemia, unspecified; E03.9 Hypothyroidism, unspecified; K21.9 Gastro-esophageal reflux disease without esophagitis; E55.9 Vitamin D deficiency, unspecified; R53.83 Other fatigue; D64.9 Anemia, unspecified
CPT/HCPCS: 36415; 80053; 80061; 82306; 82607; 83540; 83550; 84439; 84443; 84481; 85025

== ENCOUNTER → 2023-11-21 | Outpatient (CLI) | payer MEDICARE, SELFPAY | END | disposition home or self-care (01) | PROVIDERS: PCP Internal Medicine; Visit Provider Internal Medicine | DX: R53.83 Other fatigue (principal); D64.9 Anemia, unspecified | CPT/HCPCS: 82274 ==

== ENCOUNTER → 2023-11-24 | Outpatient (CLI) | payer MEDICARE, SELFPAY | END | disposition home or self-care (01) | LOC: LABSPEC 12:25 | PROVIDERS: PCP Internal Medicine; Referring Provider Internal Medicine; Visit Provider Internal Medicine | DX: D64.9 Anemia, unspecified (principal); R53.83 Other fatigue | CPT/HCPCS: 82274 ==

== ENCOUNTER 2023-12-09 08:15 | Day surgery (SDC) | payer MEDICARE, SELFPAY ==
[2023-12-09 08:42] VITALS: PULSE 76; RESP 16; TEMP 36.1; O2SAT 95; BMI 38.2
[2023-12-09] MEDS: Lactated Ringers 1,000 ML 15 ML IV (08:45)
--- NOTE | 2023-12-09 09:22 | PCM.HP.BLA ---
History and Physical Date of Admission: 12/09/23 Intake Vital Signs 11/18/2412:00 11/30/2413:02 Height 5 ft 4 in 5 ft 4 in Weight: 230 lb 233 lb BMI 39.4 39.9 BP 116/70 141/79 H Blood Pressure Location Lt brachial Lt brachial Position Sitting Sitting Pulse 71 75 Pulse Source Monitor Monitor Temp 98.6 F Temp Source Temporal Pulse Oximetry (%) 93 94 Oxygen Delivery Method room air room air Intake Visit Reasons: UPPER & LOWER- IRON DEFICIENCY/ANEMIA Graduate Research Assistant Required: No Accompanied by: Self Is patient in pain?: Yes (abdomen) Pain scale (1-10): 4 Allergies Sulfa (Sulfonamide Antibiotics) Adverse Reaction (Verified 12/01/23 14:06) Rash Medications albuterol sulfate 90 mcg/actuation aerosol inhaler 2 puff inhalation Q6H PRN shortness of breath or wheezing #8.5 grams 02/05/21 [Rx Confirmed 12/01/23] acetaminophen 500 mg tablet 1,000 mg (2 x 500 mg) PO Q8 14 days #84 tabs 01/01/22 [Rx Confirmed 12/01/23] citalopram 20 mg tablet 20 mg PO DAILY #90 tabs 12/11/22 [Rx Confirmed 12/01/23] pantoprazole 40 mg tablet,delayed release 40 mg PO DAILY #90 tabs 02/05/23 [Rx Confirmed 12/01/23] amlodipine 2.5 mg tablet 2.5 mg PO DAILY #90 tabs 02/24/23 [Rx Confirmed 12/01/23] lisinopril 40 mg tablet 40 mg PO DAILY #90 tabs 02/24/23 [Rx Confirmed 12/01/23] lorazepam 0.5 mg tablet 0.5 mg PO DAILY PRN sleep #90 tabs 09/12/23 [Rx Confirmed 12/01/23] levothyroxine 100 mcg tablet 100 mcg PO DAILY #90 tabs 10/02/23 [Rx Confirmed 12/01/23] ferrous sulfate 325 mg (65 mg iron) tablet 325 mg PO BID #60 tabs 11/20/23 [Rx Confirmed 12/01/23] pravastatin 40 mg tablet 40 mg PO QHS #90 tabs 11/21/23 [Rx Confirmed 12/01/23] PFSH Medical History (Updated 12/01/23 @ 14:[address] Lizandro Hernández MD) Arthritis Asthma Basal cell carcinoma Cancer Chronic bronchitis Contact dermatitis and eczema due to plant Depression with anxiety Diarrhea GERD (gastroesophageal reflux disease) High cholesterol History of melanoma HTN (hypertension) Hyperlipemia Hypothyroidism IBS (irritable bowel syndrome) Insomnia Knee pain Loose, teeth Myeloma Plantar fascia syndrome PONV (postoperative nausea and vomiting) Rash Thyroid disease Surgical History (Updated 12/01/23 @ 14:05 by Michell Gamble) History of cataract extraction History of hysterectomy History of knee replacement Family History (Updated 12/01/23 @ 14:07 by Michell Gamble) Mother Hypertension Hyperlipemia Osteoporosis Myocardial infarctionFather Hypertension Hyperlipemia Myocardial infarctionGrandfather Myocardial infarctionGrandfather Myocardial infarctionGrandmother Myocardial infarctionGrandmother Myocardial infarctionOther Arthritis CVA (cerebral vascular accident) Heart disease Social History Smoking Status: Never smoker alcohol intake: never substance use type: does not use HPI HPI HPI: Patient is a 78-year-old female here for GI bleeding. She is concerned she has Crohn's. She says that she has been having diarrhea and vomiting for years. She has been on a PPI for several years. She has had her gallbladder out in the past. She says that she has been having GI bleeding and diarrhea ever since she can remember. She says that she also has upper abdominal pain. ROS General General: Yes fatigue HEENT HEENT: Yes eye surgery and swollen glands Additional Details: Hx of cataract surgery Endo Endocrine: Yes thyroid disease Musc Musculoskeletal: Yes arthritis Cardio Cardiovascular: Yes murmur and high blood pressure Psych Psychiatric: Yes depression Resp Respiratory: Yes shortness of breath, Yes sleep apnea, Yes cough and Yes asthma Gastro Gastrointestinal: Yes abdominal pain, Yes nausea or vomiting, Yes diarrhea, Yes constipation, Yes blood in stool, Yes acid reflux, Yes hemorrhoids and Yes black,tarry stools Kojo Hematologic: Yes anemia Neuro Neurologic: Yes numbness and Yes tingling Exam Const General: cooperative Orientation: alert and oriented x3 HENMT Head: normal to inspection Neck Neck: normal visual inspection and full ROM Chest Chest palpation & inspection: normal inspection of the chest Resp Effort & Inspection: normal respiratory effort Auscultation: clear to auscultation bilaterally Cardio Rate: regular rate Rhythm: regular rhythm GI Inspection: non-distended Palpation: soft and nontender Skin General: no rashes or lesions noted Neuro General: patient alert and patient oriented x3 Extrem General: full ROM Psych Appearance: grossly normal Mental Status: mental status grossly normal Assessment and Plan Assessment and Plan (1) Iron deficiency anemia: Status: Acute Qualifiers: Iron deficiency anemia type: unspecified iron deficiency Qualified Code(s): D50.9 - Iron deficiency anemia, unspecified (2) GI bleed: Status: Acute Qualifiers: Gastritis type: unspecified gastritis Orders: Orders Colonoscopy Today EGD Today Patient Instructions: The patient is having GI bleeding and has chronic diarrhea and nausea. She is concern for Crohn's disease. I will plan for EGD and colonoscopy to evaluate. Her last EGD and colonoscopy were in 2017. I explained endoscopy in detail to the patient. I explained the risks including but not limited to stroke or heart attack with anesthesia, perforation of the GI tract, bleeding, infection. I explained that any of these could necessitate further emergency surgery. The patient understands and all questions were answered sufficiently. The patient wishes to proceed with procedure. Lizandro Hernández MD Pager: [facility] [address] [place] [address], [address] [place] [address] Office: I have examined the patient and the H&P has been reviewed. There are no clinical changes since date of exam.
--- NOTE | 2023-12-09 09:30 | COLBX_PTH ---
PATIENT: JAYCE MARTINEZ LOC: EN U#:[id number] AGE/SX: 78/F ROOM: RE12/09/[address]: Dr. Lizandro Hernández MD : 1945 BED: DIS: 12/09/2023 SPEC #: [id number] RECD: 12/09/23 11:29 STATUS: JORDAN BURROUGHS #: [id number] STEWART: 12/09/23 09:[address]: Lizandro Hernández DEPT: SURGICAL PATHOLOGY RECD BY: Dora Frias ENTERED: 12/09/23 13:16 SP TYPE: COLON BX OTHR DR: Dr. Shayna Keating MD Tissues: A - Ileum, NOS B - COLON BIOPSY Procedures: Surgery Specimen Level IV HEADER OPERATION: Colonoscopy, EGD with biopsy PRE-OP DIAGNOSIS: Iron deficiency anemia, GI bleed TISSUE SUBMITTED: A- Terminal ileum biopsy, B- Random colon biopsy MICROSCOPIC DIAGNOSIS A. Terminal ileum, biopsy: No pathologic change. B. Colon, random biopsy: No pathologic change. / 12/10/2023 MICROSCOPIC DESCRIPTION Slides are reviewed. GROSS DESCRIPTION A. Received in fixative is one container labeled with the patient's name and designated Terminal ileum biopsy. The specimen consists of two irregular fragments of light keane soft tissue that in aggregate measure 0.6 x 0.6 x 0.1 cm. The specimen is totally submitted in one cassette. B. Received in fixative is one container labeled with the patient's name and designated Random colon biopsy. The specimen consists of one irregular fragment of light keane soft tissue that in aggregate measure 0.8 x 0.5 x 0.1 cm. The specimen is totally submitted in one cassette. / 12/09/23 TC:5 CPT:27582x2
--- NOTE | 2023-12-09 10:04 | OP.CCLET_ITS ---
12/09/2023 Shayna Keating [facility] [address] [place] [address] Re : Upper GI endoscopy procedure for Caridad Llamas Dear Dr. Keating This procedure was performed on Saturday, December 09, 2023. My impressions and recommendations are as follows: Impressions : - Normal esophagus. - Normal stomach. - Normal examined duodenum. - No specimens collected. Recommendations : - Discharge patient to home. - Resume previous diet. - Continue present medications. My findings are described in the full procedure note, which is enclosed. If I can be of further assistance, please feel free to contact me at Doctor phone number(s): , Work: . Sincerely, Lizandro Hernández MD 12/09/2023 10:03:38 AM This report has been signed electronically.
--- NOTE | 2023-12-09 10:04 | OP.EGD_ITS ---
Patient Name: Caridad Llamas Procedure Date: 12/09/2023 9:28 AM Date of : 1945 Age: 78 Procedure: Upper GI endoscopy Indications: Epigastric abdominal pain, Abdominal bloating Providers: Lizandro Hernández MD Referring MD: Lizandro Hernández MD Medicines: Propofol per Anesthesia Patient Profile: This is a 78 year old female. Refer to note in patient chart for documentation of history and physical. Complications: No immediate complications. Estimated blood loss: Minimal. Procedure: Pre-Anesthesia Assessment: - Prior to the procedure, a History and Physical was performed, and patient medications and allergies were reviewed. The patient's tolerance of previous anesthesia was also reviewed. The risks and benefits of the procedure and the sedation options and risks were discussed with the patient. All questions were answered, and informed consent was obtained. Prior Anticoagulants: The patient has taken no anticoagulant or antiplatelet agents. After reviewing the risks and benefits, the patient was deemed in satisfactory condition to undergo the procedure. After obtaining informed consent, the endoscope was passed under direct vision. Throughout the procedure, the patient's blood pressure, pulse, and oxygen saturations were monitored continuously. The gastroscope was introduced through the mouth, and advanced to the fourth part of duodenum. The upper GI endoscopy was accomplished without difficulty. The patient tolerated the procedure well. Scope In: 9:43:43 AM Scope Out: 9:45:19 AM Total Procedure Duration Time 0 hours 1 minute 36 seconds Findings: The esophagus was normal. The stomach was normal. The examined duodenum was normal. A large hiatal hernia was present. Impression: - Normal esophagus. - Normal stomach. - Normal examined duodenum. - No specimens collected. Recommendation: - Discharge patient to home. - Resume previous diet. - Continue present medications. Procedure Code(s): --- Professional --- 65011, Esophagogastroduodenoscopy, flexible, transoral; diagnostic, including collection of specimen(s) by brushing or washing, when performed (separate procedure) Diagnosis Code(s): --- Professional --- R10.13, Epigastric pain R14.0, Abdominal distension (gaseous) CPT copyright 2021 [employer]. All rights reserved. The codes documented in this report are preliminary and upon application specialist review may be revised to meet current compliance requirements. Lizandro Hernández MD 12/09/2023 10:03:38 AM This report has been signed electronically. Number of Addenda: 0 Note Initiated On: 12/09/2023 9:28 AM
[2023-12-09 10:06] VITALS: BP 106/55; BP 130/74; PULSE 73; RESP 16; TEMP 36.4; O2SAT 91
--- NOTE | 2023-12-09 10:06 | OP.COLON_ITS ---
Patient Name: Caridad Llamas Procedure Date: 12/09/2023 9:48 AM Date of : 1945 Age: 78 Procedure: Colonoscopy Indications: Rectal bleeding, Chronic diarrhea Providers: Lizandro Hernández MD Referring MD: Lizandro Hernández MD Medicines: Propofol per Anesthesia Patient Profile: This is a 78 year old female. Refer to note in patient chart for documentation of history and physical. Last Colonoscopy: several years ago. Complications: No immediate complications. Estimated blood loss: Minimal. Procedure: Pre-Anesthesia Assessment: - Prior to the procedure, a History and Physical was performed, and patient medications and allergies were reviewed. The patient's tolerance of previous anesthesia was also reviewed. The risks and benefits of the procedure and the sedation options and risks were discussed with the patient. All questions were answered, and informed consent was obtained. Prior Anticoagulants: The patient has taken no anticoagulant or antiplatelet agents. After reviewing the risks and benefits, the patient was deemed in satisfactory condition to undergo the procedure. - Prior to the procedure, a History and Physical was performed, and patient medications and allergies were reviewed. The patient's tolerance of previous anesthesia was also reviewed. The risks and benefits of the procedure and the sedation options and risks were discussed with the patient. All questions were answered, and informed consent was obtained. Prior Anticoagulants: The patient has taken no anticoagulant or antiplatelet agents. After reviewing the risks and benefits, the patient was deemed in satisfactory condition to undergo the procedure. After I obtained informed consent, the scope was passed under direct vision. Throughout the procedure, the patient's blood pressure, pulse, and oxygen saturations were monitored continuously. The Colonoscope was introduced through the anus and advanced to the cecum, identified by appendiceal orifice and ileocecal valve. The colonoscopy was performed without difficulty. The patient tolerated the procedure well. The quality of the bowel preparation was good. The terminal ileum, ileocecal valve, appendiceal orifice, and rectum were photographed. Scope In: 9:49:27 AM Scope Withdrawal Time 0 hours 6 minutes 22 seconds Scope Out: 10:00:27 AM Total Procedure Duration Time 0 hours 11 minutes 0 seconds Findings: The entire examined colon appeared normal on direct and retroflexion views. Impression: - The entire examined colon is normal on direct and retroflexion views. - No specimens collected. Recommendation: - Discharge patient to home. - Resume previous diet. - Continue present medications. - Repeat colonoscopy is not recommended due to current age (66 years or older) for screening purposes. Procedure Code(s): --- Professional --- 75766, Colonoscopy, flexible; diagnostic, including collection of specimen(s) by brushing or washing, when performed (separate procedure) Diagnosis Code(s): --- Professional --- K62.5, Hemorrhage of anus and rectum K52.9, Noninfective gastroenteritis and colitis, unspecified CPT copyright 2021 [employer]. All rights reserved. The codes documented in this report are preliminary and upon a class lineman review may be revised to meet current compliance requirements. Lizandro Hernández MD 12/09/2023 10:05:39 AM This report has been signed electronically. Number of Addenda: 0 Note Initiated On: 12/09/2023 9:48 AM
--- NOTE | 2023-12-09 10:06 | OP.CCLET_ITS ---
12/09/2023 Shayna Keating [facility] [address] [place] [address] Re : Colonoscopy procedure for Caridad Llamas Dear Dr. Keating This procedure was performed on Saturday, December 09, 2023. My impressions and recommendations are as follows: Impressions : - The entire examined colon is normal on direct and retroflexion views. - No specimens collected. Recommendations : - Discharge patient to home. - Resume previous diet. - Continue present medications. - Repeat colonoscopy is not recommended due to current age (66 years or older) for screening purposes. My findings are described in the full procedure note, which is enclosed. If I can be of further assistance, please feel free to contact me at Doctor phone number(s): , Work: . Sincerely, Lizandro Hernández MD 12/09/2023 10:05:39 AM This report has been signed electronically.
[2023-12-09 10:10] VITALS: BP 105/63; BP 106/55; PULSE 72; RESP 16; O2SAT 93
[2023-12-09 10:15] VITALS: BP 104/57; BP 106/55; PULSE 73; RESP 16; O2SAT 95
[2023-12-09 10:21] VITALS: BP 106/55; BP 109/67; PULSE 68; RESP 16; TEMP 36.1; O2SAT 93
[2023-12-09 10:34] VITALS: BP 106/55
== END 2023-12-09 10:43 | disposition home or self-care (01) ==
LOC: EN 08:15 → AC 08:17
PROVIDERS: PCP Internal Medicine; Referring Provider Surgery; Visit Provider Surgery
PROC: 0DJD8ZZ Inspection of Lower Intestinal Tract, Via Natural or Artificial Opening Endoscopic (ICD-10-PCS; CPT 45378; principal; 2023-12-09 09:25)
DX: K52.9 Noninfective gastroenteritis and colitis, unspecified (principal); D50.9 Iron deficiency anemia, unspecified; I10 Essential (primary) hypertension; K29.70 Gastritis, unspecified, without bleeding; E78.00 Pure hypercholesterolemia, unspecified; K92.2 Gastrointestinal hemorrhage, unspecified; F32.A Depression, unspecified; R10.13 Epigastric pain; R14.0 Abdominal distension (gaseous); Z79.899 Other long term (current) drug therapy; Z79.890 Hormone replacement therapy; E03.9 Hypothyroidism, unspecified; K21.9 Gastro-esophageal reflux disease without esophagitis
CPT/HCPCS: 45378; 43235; 88305; J7120; J2405

== ENCOUNTER 2023-12-22 13:48 | Outpatient (CLI) | payer MEDICARE, SELFPAY | END 2023-12-22 23:59 | disposition home or self-care (01) | LOC: LABSPEC 13:49 | PROVIDERS: PCP Internal Medicine; Referring Provider Internal Medicine; Visit Provider Internal Medicine | DX: K58.9 Irritable bowel syndrome, unspecified (principal); R19.7 Diarrhea, unspecified | CPT/HCPCS: 87506 ==

== ENCOUNTER → 2023-12-26 | Outpatient (CLI) | payer MEDICARE, SELFPAY ==
[2023-12-26 13:20] LABS: Absolute Lymphocyte Count 2.64 X10^3/uL (0.83-4.51); Absolute Neutrophil Count 3.7 X10^3/uL (2.0-7.7); Basophil# 0.06 X10^3/uL; Basophil% 0.8 % (0-1); Eosinophil# 0.15 X10^3/uL; Eosinophils% 2.1 % (0-5); Hematocrit 37.7 % (37-47); Hemoglobin 11.6 g/dL (12.0-15.0); Lymphocyte # 2.64 X10^3/ul (0.83-4.51); Lymphocyte % 36.8 % (19-41); Mean Corp Hgb Conc 30.8 g/dL (32-36); Mean Corpuscular Hgb 26.9 pg (27.0-32.0); Mean Corpuscular Volume 87.5 fL (81-99); Mean Platelet Vol. 9.5 fl (6.2-12.0); Monocyte# 0.58 X10^3/uL; Monocyte% 8.1 % (0-10); NRBC Flagged by Analyzer 0 % (0-5); Neutrophil # 3.71 X10^3/uL (2.7-7.7); Neutrophil % 51.8 % (47-70); Platelet Count 264 K/mm3 (150-450); Red Blood Count 4.31 M/mm3 (4.2-5.4); White Blood Count 7.2 K/mm3 (4.4-11.0)
[2023-12-26 13:39] LABS: Erythrocyte Sedimentation Rate 29 mm/hr (0-30)
[2023-12-26 13:49] LABS: ALB/GLOB Ratio 0.8 RATIO (0.9-2.4); AST(SGOT) 19 U/L (15-37); Alanine Aminotransfer ALT/SGPT 21 U/L (13-56); Albumin, Serum 3.2 g/dL (3.2-5.0); Alkaline Phosphatase 80 U/L (45-117); Anion Gap 6 (5-15); BUN 13 mg/dL (7-18); BUN/Creat Ratio 16.8 RATIO (10-20); CRP 5.61 mg/L (0.0-3.0); Calcium,Total 9.1 mg/dL (8.5-10.1); Chloride 105 mmol/L (98-107); Creatinine, Serum 0.77 mg/dL (0.55-1.02); EST Glomerular Filtration Rate 77 mL/min (>60); Est Glom Filt Rate - Afr Amer 93 mL/min (>60); Globulin 4.1 g/dL (2.2-4.2); Glucose 140 mg/dL (74-106); Protein, Total 7.3 g/dL (6.4-8.2); Sodium Level 137 mmol/L (136-145)
== END | disposition home or self-care (01) ==
LOC: LAB 11:59
PROVIDERS: PCP Internal Medicine; Referring Provider Internal Medicine; Visit Provider Internal Medicine
DX: R11.2 Nausea with vomiting, unspecified (principal); R10.9 Unspecified abdominal pain
CPT/HCPCS: 36415; 80053; 85025; 85652; 86140

== ENCOUNTER → 2023-12-29 | Outpatient (CLI) | payer MEDICARE, SELFPAY ==
[2024-01-06 19:07] LABS: Fats, Neutral Normal (.); Fats, Total Increased (.)
== END | disposition home or self-care (01) ==
LOC: LABSPEC 11:22
PROVIDERS: PCP Internal Medicine; Visit Provider Internal Medicine
DX: R19.7 Diarrhea, unspecified (principal); K58.9 Irritable bowel syndrome, unspecified
CPT/HCPCS: 82705; 83630; 87493

== ENCOUNTER → 2024-01-05 | Outpatient (CLI) | payer MEDICARE, SELFPAY ==
--- NOTE | 2024-01-05 18:00 | CT_ITS ---
EXAM: CT ABDOMEN AND PELVIS WITH INTRAVENOUS CONTRAST CLINICAL INDICATION: Abdominal pain, nausea, emesis TECHNIQUE: Helically acquired images were obtained of the abdomen and pelvis with intravenous contrast. This CT exam was performed using one or more of the following dose reduction techniques: automated exposure control, adjustment of the mA and/or kV according to patient size, and/or use of iterative reconstruction technique. CONTRAST: Oral and amp; IV Readi-CAT and amp; 100mL [id number] COMPARISON: Abdominal series, 05/23/2020 FINDINGS: LOWER THORAX: Medium hiatal hernia with apparent wall thickening of the distal esophagus and the herniated stomach. Coronary artery calcifications. Lung bases are clear. No cardiomegaly. No significant pericardial effusion. ABDOMEN: LIVER: Low-attenuation throughout the liver suggesting fatty infiltration. Small cyst in the right hepatic lobe for which no follow-up is indicated. GALLBLADDER AND BILE DUCTS: No significant abnormality. No calcified gallstones. No gallbladder distention or wall edema. No intra- or extrahepatic biliary ductal dilation. PANCREAS: No significant abnormality. No focal cystic or solid mass. SPLEEN: No significant abnormality. Normal size without focal cystic or solid mass. ADRENALS: No significant abnormality. No nodules. KIDNEYS AND URETERS: No significant abnormality. Normal renal size and position. No hydronephrosis. STOMACH AND BOWEL: Colonic diverticulosis without discrete evidence of acute diverticulitis. No stomach or bowel distention. PELVIS: APPENDIX: No evidence of acute appendicitis. BLADDER: No significant abnormality. REPRODUCTIVE: Status post hysterectomy. ABDOMEN and PELVIS: INTRAPERITONEAL SPACE: No significant abnormality. No ascites or other fluid collection. No free air. BONES/JOINTS: Degenerative changes in the spine. L1 compression fracture as best visualized correlates with prior radiographic examination. No suspicious lytic or blastic abnormality. SOFT TISSUES: Fat-containing umbilical hernia and fat-containing left inguinal hernia. VASCULATURE: See above. LYMPH NODES: No significant abnormality. No enlarged lymph nodes. CT/Abdomen/Pelvis WITH Contrast IMPRESSION: 1. Medium hiatal hernia with apparent wall thickening of the distal esophagus and the herniated stomach. Correlate for gastritis/esophagitis. 2. Degenerative changes in the spine. L1 compression fracture as best visualized correlates with prior radiographic examination. 3. Low-attenuation throughout the liver suggesting fatty infiltration. Small cyst in the right hepatic lobe for which no follow-up is indicated. Findings suggestive of fatty liver. 4. Colonic diverticulosis without discrete evidence of acute diverticulitis. Electronically Signed: Torsten Clifton DO at 21:00 EDT ,
== END | disposition home or self-care (01) ==
PROVIDERS: PCP Internal Medicine; Visit Provider Internal Medicine
DX: R10.9 Unspecified abdominal pain (principal); R11.2 Nausea with vomiting, unspecified
CPT/HCPCS: 74177; Q9967

== ENCOUNTER → 2024-08-30 | Outpatient (CLI) | payer MEDICARE, SELFPAY ==
[2024-08-30 12:52] LABS: Mucous, Urine 0 SEEN /hpf (<or=2+)
[2024-08-30 13:49] LABS: Vitamin B12 288 pg/mL (211-911); Vitamin D,25 Hydroxy 24.3 ng/mL
[2024-08-30 13:56] LABS: ALB/GLOB Ratio 0.8 RATIO (0.9-2.4); AST(SGOT) 30 U/L (15-37); Alanine Aminotransfer ALT/SGPT 33 U/L (13-56); Albumin, Serum 3.4 g/dL (3.2-5.0); Alkaline Phosphatase 77 U/L (45-117); Anion Gap 9 (5-15); BUN 13 mg/dL (7-18); BUN/Creat Ratio 17.7 RATIO (10-20); Calcium,Total 9.1 mg/dL (8.5-10.1); Chloride 105 mmol/L (98-107); Creatinine, Serum 0.74 mg/dL (0.55-1.02); EST Glomerular Filtration Rate 81 mL/min (>60); Est Glom Filt Rate - Afr Amer 98 mL/min (>60); Globulin 4.3 g/dL (2.2-4.2); Glucose 102 mg/dL (74-106); Magnesium 2.1 mg/dL (1.6-2.6); Potassium 3.7 mmol/L (3.5-5.1); Protein, Total 7.7 g/dL (6.4-8.2); Sodium Level 140 mmol/L (136-145); T4 Free Direct 1.04 ng/dL (0.76-1.46)
[2024-08-30 14:19] LABS: Hemoglobin A1c 6.4 % (3.8-5.6)
[2024-08-31 12:04] LABS: Color, Urine Yellow (Yellow); Glucose, Dipstick Normal (Normal); Ketone-Dipstick 5 mg/dl (Negative); Leukocyte Esterase-Dipstick 500 /ul (Negative); Nitrite-Dipstick Negative (Negative); Occult Blood-Urine 50 /ul (Negative); Protein-Dipstick 30 mg/dl (Negative); Urine Bilirubin Dipstick Negative (Negative); Urine Clarity Sl. Cloudy (Clear); Urine Urobilinogen Normal (Normal)
[2024-08-31 12:52] LABS: Bacteria 1+ /hpf (None Seen); Red Blood Cells-Urine 0-5 SEEN /hpf (0-5); Squamous Epithelial Cells - UA 0-5 SEEN /hpf (5-10); White Blood Cells 50-100 SEEN /hpf (0-5)
== END | disposition home or self-care (01) ==
PROVIDERS: PCP Internal Medicine; Referring Provider Internal Medicine; Visit Provider Internal Medicine
DX: N39.0 Urinary tract infection, site not specified (principal); R11.2 Nausea with vomiting, unspecified; R10.9 Unspecified abdominal pain; R19.7 Diarrhea, unspecified; K44.9 Diaphragmatic hernia without obstruction or gangrene; E03.9 Hypothyroidism, unspecified; E78.5 Hyperlipidemia, unspecified; I10 Essential (primary) hypertension; R73.9 Hyperglycemia, unspecified; E55.9 Vitamin D deficiency, unspecified; E53.8 Deficiency of other specified B group vitamins
CPT/HCPCS: 36415; 80053; 81001; 82306; 82607; 83036; 83735; 84439; 84443; 87086; 87088

== ENCOUNTER → 2024-09-20 | Outpatient (CLI) | payer MEDICARE, SELFPAY ==
--- NOTE | 2024-09-20 12:22 | NM_ITS ---
PROCEDURE: HEPATOBILLIARY IMG W/PHARM INT REASON FOR EXAM: Nausea. Bloating. TECHNIQUE: Intravenous Choletec with planar imaging of the abdomen. 2.2 mcg Kinevac intravenously approximately 60 minutes after the radiopharmaceutical with additional anterior imaging and a region of interest drawn around the gallbladder to calculate a time-activity curve. RADIOPHARMACEUTICAL: 5.6 mCi of mebrofenin intravenously. COMPARISON: None. FINDINGS: There is good uptake of the radiopharmaceutical by the liver. Normal gallbladder visualization with the gallbladder identified by 30 minutes. Gallbladder Ejection Fraction: 49 % (Normal is >35%) NM/Hepatobilliary Img w/Pharm Int IMPRESSION: NORMAL HIDA SCAN AND GALLBLADDER EJECTION FRACTION. Reading Location: [id number]
== END | disposition home or self-care (01) ==
PROVIDERS: PCP Internal Medicine; Referring Provider Internal Medicine; Visit Provider Internal Medicine
DX: R11.0 Nausea (principal); R14.0 Abdominal distension (gaseous)
CPT/HCPCS: 78227; A9537; J2805